=== PATIENT | female | born 1955 | race Caucasian/White ===

== ENCOUNTER 2016-05-07 17:20 | Emergency (ER) | payer BC ==
[2016-05-07 19:10] VITALS: BP 161/95
--- NOTE | 2016-05-07 19:33 | UC ---
Upper Extremity HPI - HPI Summary HPI Summary: Slowly growing painful red agdaagux on R forearm since this morning. Denies recent injury/trauma or insect bite. Pain with moving fingers, pain with palpating muscles near elbow insertions. - History of Current Complaint Chief Complaint: UCSkin Stated Complaint: RIGHT ARM SKIN CONCERN Time Seen by Provider: 05/07/16 19:17 Hx Obtained From: Patient Hx Last Menstrual Period: 1994 ?: No Onset/Duration: Sudden Onset Severity Initially: Mild Severity Currently: Mild Location Of Pain: Is Discrete @ Character: Aching Aggravating Factor(s): Movement, Flexion, Extension Alleviating Factor(s): Nothing Associated Signs And Symptoms: Positive: Redness. Negative: Fever - Allergies/Home Medications Allergies/Adverse Reactions: Allergies Allergy/AdvReac Type Severity Reaction Status Date / Time Penicillins [PCN] Allergy Severe N/V, Verified 05/07/16 19:12 SWEATING, DIARRHEA, RASH Chocolate Allergy PSORIASIS Verified 05/07/16 19:12 Epinephrine Allergy SEVERE Verified 05/07/16 19:12 UNCONTROLABLE SHAKING Iodinated Contrast Media Allergy KIDNEY Verified 05/07/16 19:12 [CONTRAST DYE] PROBLEMS Meperidine [From Demerol HCl] Allergy ANAPHYLACTI Verified 05/07/16 19:12 C Phenytoin [From Dilantin] Allergy UNCONTROLLABLE Verified 05/07/16 19:12 SHAKING Red Dye Allergy PROBLEMS Verified 05/07/16 19:12 WITH KIDNEYS, SKIN PROBLEMS Soy Allergy Allergy SINUS, Verified 05/07/16 19:12 RUNNY EYES Sulfa Antibiotics Allergy See Comment Verified 05/07/16 19:12 Valproic Acid [From Depakote] Allergy ELLUSIONS Verified 05/07/16 19:12 Codeine AdvReac HYPER Verified 05/07/16 19:12 GLUTEN Allergy PSORIASIS, Uncoded 05/07/16 19:12 DIARRHEA MILK Allergy PSORIASIS Uncoded 05/07/16 19:12 PMH/Surg Hx/FS Hx/Imm Hx Endocrine History Of: Denies: Diabetes, Thyroid Disease Cardiovascular History Of: Reports: Hypertension Denies: Cardiac Disorders Respiratory History Of: Denies: COPD, Asthma GI/ History Of: Denies: Ulcer Neurological History Of: Reports: Seizures - 2004- WITH [place] VIRUS- ALSO HAD ENCHEPHALITIS - Surgical History Surgical History: Yes Surgery Procedure, Year, and Place: APPENDECTOMY- AGE 4. HYSTERECTOMY-10/1994- [place]. GANGLION cyst X 2. COLONOSCOPY - Family History Known Family History: Positive: None Family History: no known cardio-vascular issues in family lineage - Social History Alcohol Use: Daily Alcohol Amount: 4 OZ WINE/DAY Substance Use Type: None Smoking Status (MU): Former Smoker When Did the Patient Quit Smoking/Using Tobacco: 1986 - Immunization History Most Recent Influenza Vaccination: never Review of Systems Constitutional: Negative Skin: Rash Eyes: Negative ENT: Negative Respiratory: Negative Cardiovascular: Negative Gastrointestinal: Negative Genitourinary: Negative Motor: Negative Neurovascular: Negative Musculoskeletal: Negative Neurological: Negative Psychological: Negative All Other Systems Reviewed And Are Negative: Yes Physical Exam Triage Information Reviewed: Yes Appearance: Well-Appearing, Obese Vital Signs: Initial Vital Signs Temp 97.7 F 05/07/16 19:03 Pulse 78 05/07/16 19:03 Resp 16 05/07/16 19:03 BP 161/95 05/07/16 19:03 Pulse Ox 99 05/07/16 19:03 Vital Signs Reviewed: Yes Eye Exam: Normal Eyes: Positive: Conjunctiva Clear ENT Exam: Normal ENT: Positive: Normal ENT inspection, Hearing grossly normal, Pharynx normal, TMs normal Dental Exam: Normal Neck exam: Normal Respiratory Exam: Normal Respiratory: Positive: Chest non-tender, Lungs clear, Normal breath sounds, No respiratory distress, No accessory muscle use Cardiovascular Exam: Normal Cardiovascular: Positive: RRR, No Murmur Musculoskeletal Exam: Other - tender along R forearm muscles Musculoskeletal: Positive: Strength Intact, ROM Intact Neurological Exam: Normal Psychological Exam: Normal Skin Exam: Other - 8cm round area of erythema R forearm Upper Extremity Course/Dx - Differential Dx/Diagnosis Provider Diagnoses: R forearm cellulitis Discharge - Discharge Plan Condition: Stable Disposition: HOME Prescriptions: DOXYcycline CAP(*) [DOXYcycline 100MG CAP(*)] 100 mg PO BID #14 cap Patient Education Materials: Cellulitis (ED) Referrals: Non Staff,Doctor [Primary Care Provider] - Additional Instructions: Elevate the area as much as possible. Warm soaks can help the infection resolve more quickly.
== END 2016-05-07 19:39 | disposition home or self-care (01) ==
LOC: UCCORT 17:20
DX: L03.113 Cellulitis of right upper limb (principal); Z88.5 Allergy status to narcotic agent; Z88.0 Allergy status to penicillin; Z88.2 Allergy status to sulfonamides; Z91.041 Radiographic dye allergy status; Z87.891 Personal history of nicotine dependence; E66.9 Obesity, unspecified
CPT/HCPCS: 99212; G0463

== ENCOUNTER 2016-08-26 09:58 | Emergency (ER) | payer BC ==
[2016-08-26 10:49] VITALS: BP 146/78
--- NOTE | 2016-08-26 12:09 | UC ---
Dental HPI - HPI Summary HPI Summary: pt presents with c/o left lower jaw and ear pain, and left ear discharge. Pt reports that she has been swimming recently. - History of Current Complaint Chief Complaint: UCDentalProblem Stated Complaint: DENTAL PAIN Time Seen by Provider: 08/26/16 11:56 Hx Obtained From: Patient Hx Last Menstrual Period: 1994 ?: No Onset/Duration: Gradual Onset, Lasting Days Severity: Moderate Related History: Discharge - from left ear, Swelling - Allergies/Home Medications Allergies/Adverse Reactions: Allergies Allergy/AdvReac Type Severity Reaction Status Date / Time Penicillins [PCN] Allergy Severe N/V, Verified 08/26/16 10:43 SWEATING, DIARRHEA, RASH Chocolate Allergy PSORIASIS Verified 08/26/16 10:43 Epinephrine Allergy SEVERE Verified 08/26/16 10:43 UNCONTROLABLE SHAKING Iodinated Contrast Media Allergy KIDNEY Verified 08/26/16 10:43 [CONTRAST DYE] PROBLEMS Meperidine [From Demerol HCl] Allergy ANAPHYLACTI Verified 08/26/16 10:43 C Phenytoin [From Dilantin] Allergy UNCONTROLLABLE Verified 08/26/16 10:43 SHAKING Red Dye Allergy PROBLEMS Verified 08/26/16 10:43 WITH KIDNEYS, SKIN PROBLEMS Soy Allergy Allergy SINUS, Verified 08/26/16 10:43 RUNNY EYES Sulfa Antibiotics Allergy See Comment Verified 08/26/16 10:43 Valproic Acid [From Depakote] Allergy ELLUSIONS Verified 08/26/16 10:43 Codeine AdvReac HYPER Verified 08/26/16 10:43 GLUTEN Allergy PSORIASIS, Uncoded 08/26/16 10:43 DIARRHEA MILK Allergy PSORIASIS Uncoded 08/26/16 10:43 PMH/Surg Hx/FS Hx/Imm Hx Previously Healthy: Yes - Surgical History Surgical History: Yes Surgery Procedure, Year, and Place: APPENDECTOMY- AGE 4. HYSTERECTOMY-10/1994- [place]. GANGLION cyst X 2. COLONOSCOPY - Family History Known Family History: Positive: Cardiac Disease Family History: no known cardio-vascular issues in family lineage - Social History Alcohol Use: None Alcohol Amount: 4 OZ WINE/DAY Substance Use Type: None Smoking Status (MU): Former Smoker When Did the Patient Quit Smoking/Using Tobacco: 1986 - Immunization History Most Recent Influenza Vaccination: NEVER Most Recent Tetanus Shot: UTD Most Recent Pneumonia Vaccination: NEVER Review of Systems Constitutional: Negative Skin: Negative Eyes: Negative ENT: Ear Ache, Other - lower left jaw pain and swelling Respiratory: Negative Cardiovascular: Negative Gastrointestinal: Negative Genitourinary: Negative Motor: Negative Neurovascular: Negative Musculoskeletal: Negative Neurological: Negative Psychological: Negative All Other Systems Reviewed And Are Negative: Yes Physical Exam Triage Information Reviewed: Yes Appearance: Well-Appearing Vital Signs: Initial Vital Signs Temp 98.9 F 08/26/16 10:44 Pulse 61 08/26/16 10:44 Resp 18 08/26/16 10:44 BP 146/78 08/26/16 10:44 Pulse Ox 97 08/26/16 10:44 Vital Signs Reviewed: Yes Eye Exam: Normal ENT Exam: Other ENT: Positive: Other: - left ear Dental: Positive: Other: - canker sore, erythema swelling left lower mid jaw. Neck exam: Normal Respiratory Exam: Normal Cardiovascular Exam: Normal Musculoskeletal Exam: Normal Neurological Exam: Normal Psychological Exam: Normal Skin Exam: Normal Dental Complaint Course/Dx - Differential Dx/Diagnosis Differential Diagnosis/Dx: Other - otits externa Provider Diagnoses: serous otitis media. dental abscess Discharge - Discharge Plan Condition: Stable Disposition: HOME Prescriptions: Ciproflox/Dexameth OTIC.SUSP* [Ciprodex Otic*] 2 drop LEFT EAR Q12H #1 bottle Clindamycin Cap(NF) [Cleocin 300 mg Cap(NF)] 300 mg PO TID #15 cap Patient Education Materials: Dental Abscess (ED), Otitis Externa (ED) Referrals: Non Staff,Doctor [Primary Care Provider] -
== END 2016-08-26 12:21 | disposition home or self-care (01) ==
LOC: UCCORT 09:58
DX: H65.92 Unspecified nonsuppurative otitis media, left ear (principal); K04.7 Periapical abscess without sinus; Z88.0 Allergy status to penicillin
CPT/HCPCS: 99212; G0463

== ENCOUNTER 2017-02-11 13:08 | Emergency (ER) | payer BC ==
[2017-02-11 13:19] VITALS: BP 180/92
--- NOTE | 2017-02-24 12:43 | UC ---
Dizzy HPI HPI Summary: patient has had sinus issuses for the past week, started getting very dizzy last night, but it resolved, today dizzyness is worse, not sure if it is related to her sinus issues, she denies any Chest pain or SOB. but states she doesn't feel right. - History Of Current Complaint Chief Complaint: UCGeneralIllness Stated Complaint: SINUS COMPLAINT Time Seen by Provider: 02/11/17 13:17 Hx Obtained From: Patient Hx Last Menstrual Period: 1994 ?: No Onset/Duration: Sudden Onset, Lasting Days Timing: Hours Severity Initially: Mild Severity Currently: Moderate Pain Intensity: 3 Pain Scale Used: 0-10 Numeric Character: Head Spinning, Lightheaded, Dizzy Aggravating Factor(s): Nothing Alleviating Factor(s): Nothing Associated Signs And Symptoms: Positive: Unsteady Gait - Risk Factors Cardiac Risk Factors: Family History CVA Risk Factor: Negative - Allergies/Home Medications Allergies/Adverse Reactions: Allergies Allergy/AdvReac Type Severity Reaction Status Date / Time Penicillins [PCN] Allergy Severe N/V, Verified 02/11/17 13:20 SWEATING, DIARRHEA, RASH Chocolate Allergy PSORIASIS Verified 02/11/17 13:20 Epinephrine Allergy SEVERE Verified 02/11/17 13:20 UNCONTROLABLE SHAKING Iodinated Contrast Media Allergy KIDNEY Verified 02/11/17 13:20 [CONTRAST DYE] PROBLEMS Meperidine [From Demerol HCl] Allergy ANAPHYLACTI Verified 02/11/17 13:20 C Phenytoin [From Dilantin] Allergy UNCONTROLLABLE Verified 02/11/17 13:20 SHAKING Red Dye Allergy PROBLEMS Verified 02/11/17 13:20 WITH KIDNEYS, SKIN PROBLEMS Soy Allergy Allergy SINUS, Verified 02/11/17 13:20 RUNNY EYES Sulfa Antibiotics Allergy See Comment Verified 02/11/17 13:20 Valproic Acid [From Depakote] Allergy ELLUSIONS Verified 02/11/17 13:20 Codeine AdvReac HYPER Verified 02/11/17 13:20 GLUTEN Allergy PSORIASIS, Uncoded 02/11/17 13:20 DIARRHEA MILK Allergy PSORIASIS Uncoded 02/11/17 13:20 PMH/Surg Hx/FS Hx/Imm Hx Previously Healthy: Yes - Surgical History Surgical History: Yes Surgery Procedure, Year, and Place: APPENDECTOMY- AGE 4. HYSTERECTOMY-10/1994- [place]. GANGLION cyst X 2. COLONOSCOPY - Family History Known Family History: Positive: None, Cardiac Disease Family History: no known cardio-vascular issues in family lineage - Social History Alcohol Use: None Alcohol Amount: 4 OZ WINE/DAY Substance Use Type: None Smoking Status (MU): Former Smoker When Did the Patient Quit Smoking/Using Tobacco: 1986 - Immunization History Most Recent Influenza Vaccination: NEVER Most Recent Tetanus Shot: UTD Most Recent Pneumonia Vaccination: NEVER Review of Systems Constitutional: Fatigue Skin: Negative Eyes: Negative ENT: Sore Throat, Nasal Discharge, Sinus Congestion, Sinus Pain/Tenderness Respiratory: Negative Cardiovascular: Negative Gastrointestinal: Negative Genitourinary: Negative Motor: Negative Neurovascular: Negative Musculoskeletal: Negative Neurological: Other - dizzy Psychological: Negative Is Patient Immunocompromised?: No All Other Systems Reviewed And Are Negative: Yes Physical Exam Triage Information Reviewed: Yes Appearance: Well-Appearing, Well-Nourished, Pain Distress Vital Signs: Initial Vital Signs Temp 98.2 F 02/11/17 13:12 Pulse 71 02/11/17 13:12 Resp 16 02/11/17 13:12 BP 180/92 02/11/17 13:12 Pulse Ox 99 02/11/17 13:12 Vital Signs Reviewed: Yes Eye Exam: Normal ENT: Positive: Nasal congestion, TM bulging Dental Exam: Normal Neck exam: Normal Neck: Positive: Supple, Nontender, No Lymphadenopathy Respiratory Exam: Normal Respiratory: Positive: Chest non-tender, Lungs clear, Normal breath sounds Cardiovascular Exam: Normal Cardiovascular: Positive: RRR, No Murmur, Pulses Normal Abdominal Exam: Normal Abdomen Description: Positive: Nontender, No Organomegaly, Soft Bowel Sounds: Positive: Present Musculoskeletal Exam: Normal Neurological: Positive: Alert, Muscle Tone Normal, Other: - PERRLA, +Rhomberg, patient cannot stand up without holding on to something Psychological Exam: Normal Skin Exam: Normal Diagnostics - EKG Cardiac Rhythm: Sinus: Normal - no pror EKG for comparison, reviewed with Dr KATIANA Mendoza Course/Dx - Course Course Of Treatment: hx obtained, exam performed ,meds reviewed, EKG obtained, adivsed to follow up at [facility] er for further MD jose aware at ER. - Differential Dx/Diagnosis Differential Diagnosis/HQI/PQRI: Anxiety, Coronary Artery Disease, CVA, Myocardial Infarction, Transient Ischemic Attack Provider Diagnoses: dizziness Discharge - Discharge Plan Condition: Stable Disposition: HOME Patient Education Materials: Dizziness (ED) Referrals: Non Staff,Doctor [Primary Care Provider] - Additional Instructions: 1. please report to ER for further evaluation of your symtpoms. 2. go straight there, they are aware that you are coming from urgent care.
== END 2017-02-11 13:47 | disposition home or self-care (01) ==
LOC: UCCORT 13:08
DX: R42 Dizziness and giddiness (principal); R53.83 Other fatigue; J02.9 Acute pharyngitis, unspecified; R09.81 Nasal congestion; Z90.710 Acquired absence of both cervix and uterus; Z90.89 Acquired absence of other organs; Z88.5 Allergy status to narcotic agent; Z88.0 Allergy status to penicillin; Z88.2 Allergy status to sulfonamides; Z91.041 Radiographic dye allergy status; Z87.891 Personal history of nicotine dependence
CPT/HCPCS: 93005; 99211; G0463

== ENCOUNTER 2017-11-18 09:54 | Emergency (ER) | payer BC ==
[2017-11-18 11:01] VITALS: BP 151/77
--- NOTE | 2017-11-18 11:21 | UC ---
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 She presents here with increased pain and swelling of both ears. Her hearing is muffled. She has frequent otitis externa. She denies any recent fever or chills although she did have a fever last week with a viral URI. - History of Current Complaint Chief Complaint: UCEar Stated Complaint: BILATERAL EAR COMPLAINT Time Seen by Provider: 11/18/17 10:43 Hx Obtained From: Patient Hx Last Menstrual Period: 1994 Onset/Duration: Gradual Onset, Lasting Days Severity Initially: Mild Severity Currently: Moderate Pain Intensity: 4 Pain Scale Used: 0-10 Numeric Aggravating Factors: Other - TOUCH/CHEWING Ear Image: 1 - CELLULITUS - Allergies/Home Medications Allergies/Adverse Reactions: Allergies Allergy/AdvReac Type Severity Reaction Status Date / Time meperidine [From Demerol] Allergy Severe Anaphylatic Verified 11/18/17 11:22 Shock Sulfa (Sulfonamide Allergy Severe Leg pain Verified 11/18/17 11:12 Antibiotics) Penicillins Allergy Intermediate Rash, Verified 11/18/17 11:19 sweating, N/V, diarrhea phenytoin [From Dilantin] Allergy Intermediate ucontrollable Verified 11/18/17 11:16 shaking epinephrine AdvReac Intermediate severe Verified 11/18/17 11:20 uncontrollable shaking Iodinated Contrast- Oral and AdvReac Intermediate kidney Verified 11/18/17 11:21 IV Dye problems soy AdvReac Intermediate Sinus, Verified 11/18/17 11:22 runny eyes codeine AdvReac hyperactivi Verified 11/18/17 11:07 ty red dye AdvReac problems Verified 11/18/17 11:18 with kidneys, skin problems chocolate Allergy Intermediate psoriasis Uncoded 11/18/17 11:18 GLUTEN Allergy PSORIASIS, Uncoded 02/11/17 13:20 DIARRHEA MILK Allergy PSORIASIS Uncoded 02/11/17 13:20 Home Medications: Home Medications 2nd Bp Med 1 tab PO BID 11/18/17 [History Confirmed 11/18/17] Metoprolol Tartrate 25 mg PO BID 11/18/17 [History Confirmed 11/18/17] PMH/Surg Hx/FS Hx/Imm Hx Previously Healthy: Yes Cardiovascular History: Hypertension - Surgical History Surgical History: Yes Surgery Procedure, Year, and Place: APPENDECTOMY- AGE 4. HYSTERECTOMY-10/1994- [place]. GANGLION cyst X 2. COLONOSCOPY - Family History Known Family History: Positive: Cardiac Disease, Hypertension Family History: no known cardio-vascular issues in family lineage - Social History Alcohol Use: Rare Alcohol Amount: 4 OZ WINE/DAY Substance Use Type: None Smoking Status (MU): Former Smoker When Did the Patient Quit Smoking/Using Tobacco: 1986 - Immunization History Most Recent Influenza Vaccination: NEVER Most Recent Tetanus Shot: UTD ~2013 Most Recent Pneumonia Vaccination: NEVER Review of Systems Constitutional: Negative Skin: Negative Eyes: Negative ENT: Ear Ache Respiratory: Negative Cardiovascular: Negative Gastrointestinal: Negative Genitourinary: Negative Motor: Negative Neurovascular: Negative Musculoskeletal: Negative Neurological: Negative Psychological: Negative All Other Systems Reviewed And Are Negative: Yes Physical Exam Triage Information Reviewed: Yes Appearance: Well-Appearing, No Pain Distress, Well-Nourished Vital Signs: Initial Vital Signs Temp 97.9 F 11/18/17 10:46 Pulse 70 11/18/17 10:46 Resp 20 11/18/17 10:46 BP 151/77 11/18/17 10:46 Pulse Ox 98 11/18/17 10:46 Vital Signs Reviewed: Yes Eyes: Positive: Conjunctiva Clear ENT: Positive: TMs normal, Other - BILAT TRAGAL TENDERNESS/EAC SWELLING BILAT. Negative: Normal ENT inspection, Hearing grossly normal, Nasal congestion, Nasal drainage, Trismus, Muffled voice, Hoarse voice Dental Exam: Normal Neck: Positive: Supple, Nontender, No Lymphadenopathy Respiratory: Positive: Lungs clear, Normal breath sounds, No respiratory distress, No accessory muscle use Cardiovascular: Positive: RRR Musculoskeletal: Positive: ROM Intact, No Edema Neurological: Positive: Alert Psychological: Positive: Normal Response To Family Ear Complaint Course/Dx - Differential Dx/Diagnosis Provider Diagnoses: BILATERAL OTITIS EXTERNA. RIGHT EAR LOBE CELLULITIS Discharge - Sign-Out/Discharge Documenting (check all that apply): Patient Departure All imaging exams completed and their final reports reviewed: No Studies - Discharge Plan Condition: Stable Disposition: HOME Prescriptions: DOXYcycline CAP(*) [DOXYcycline 100MG CAP(*)] 100 mg PO BID #14 cap Neomyc/Polym/HC 1% OTIC SUSP* [Cortisporin Otic Susp 1%*] 4 drop BOTH EARS QID 7 Days #1 btl Patient Education Materials: Otitis Externa (ED) Referrals: Rebecca Braga MD [Primary Care Provider] - Additional Instructions: recheck later this week if not better RECHECK SOONER FOR NEW OR WORSENING SYMPTOMS - Billing Disposition and Condition Condition: STABLE Disposition: Home
== END 2017-11-18 11:32 | disposition home or self-care (01) ==
LOC: UCCORT 09:54
DX: H60.93 Unspecified otitis externa, bilateral (principal); H60.11 Cellulitis of right external ear; Z88.0 Allergy status to penicillin; Z88.1 Allergy status to other antibiotic agents; Z88.6 Allergy status to analgesic agent; Z88.8 Allergy status to other drugs, medicaments and biological substances; Z91.041 Radiographic dye allergy status; Z88.5 Allergy status to narcotic agent; I10 Essential (primary) hypertension; Z87.891 Personal history of nicotine dependence
CPT/HCPCS: 99212; G0463

== ENCOUNTER 2018-01-28 08:11 | Emergency (ER) | payer BC ==
[2018-01-28 08:31] VITALS: BP 182/87
--- NOTE | 2018-01-28 09:41 | UC ---
Skin Complaint HPI - HPI Summary HPI Summary: rash bilateral feet x 4 days small red pointy rash of both feet , started on right foot and then left the rash is painful , no new food, drinks, drugs, no change if sore or detergent no fever but feels achy and feverish - History of Current Complaint Chief Complaint: UCSkin Time Seen by Provider: 01/28/18 08:29 Stated Complaint: RIGHT FOOT CONCERN Hx Obtained From: Patient Hx Last Menstrual Period: 1994 Onset/Duration: Gradual Onset, Lasting Days - 4, Still Present Timing: Constant Onset Severity: Moderate Current Severity: Moderate Pain Intensity: 2 Pain Scale Used: 0-10 Numeric Location: Discrete - bilateral feet Character: Pain, Redness Aggravating Factor(s): Touch Alleviating Factor(s): Nothing Associated Signs & Symptoms: Positive: Weakness, Chills, Rash. Negative: Nausea , Vomiting, Numbness, Thirst, Diaphoresis, Pallor, Shivering, Fever, Cough, Wheezing, Chest Pain - Allergy/Home Medications Allergies/Adverse Reactions: Allergies Allergy/AdvReac Type Severity Reaction Status Date / Time meperidine [From Demerol] Allergy Severe Anaphylatic Verified 01/28/18 08:26 Shock Sulfa (Sulfonamide Allergy Severe Leg pain Verified 01/28/18 08:26 Antibiotics) Penicillins Allergy Intermediate Rash, Verified 01/28/18 08:26 sweating, N/V, diarrhea phenytoin [From Dilantin] Allergy Intermediate ucontrollable Verified 01/28/18 08:26 shaking epinephrine AdvReac Intermediate severe Verified 01/28/18 08:26 uncontrollable shaking Iodinated Contrast- Oral and AdvReac Intermediate kidney Verified 01/28/18 08:26 IV Dye problems soy AdvReac Intermediate Sinus, Verified 01/28/18 08:26 runny eyes codeine AdvReac hyperactivi Verified 01/28/18 08:26 ty red dye AdvReac problems Verified 01/28/18 08:26 with kidneys, skin problems chocolate Allergy Intermediate psoriasis Uncoded 01/28/18 08:26 GLUTEN Allergy PSORIASIS, Uncoded 01/28/18 08:26 DIARRHEA MILK Allergy PSORIASIS Uncoded 01/28/18 08:26 Home Medications: Home Medications Losartan TAB* [Cozaar TAB*] 25 mg PO BID 01/28/18 [History Confirmed 01/28/18] PMH/Surg Hx/FS Hx/Imm Hx - Additional Past Medical History 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 HYSTERECTOMY-10/1994- [place]. GANGLION cyst X 2. COLONOSCOPY - Family History Known Family History: Positive: None, Cardiac Disease, Hypertension Family History: no known cardio-vascular issues in family lineage - Social History Alcohol Use: None Alcohol Amount: 4 OZ WINE/DAY Substance Use Type: None Smoking Status (MU): Former Smoker When Did the Patient Quit Smoking/Using Tobacco: 1986 - Immunization History Most Recent Influenza Vaccination: NEVER Most Recent Tetanus Shot: UTD ~2013 Most Recent Pneumonia Vaccination: NEVER Review of Systems All Other Systems Reviewed And Are Negative: Yes Constitutional: Positive: Chills, Fatigue Skin: Positive: Rash Eyes: Positive: Negative ENT: Positive: Negative Respiratory: Positive: Negative Cardiovascular: Positive: Negative Musculoskeletal: Positive: Negative Is Patient Immunocompromised?: No Physical Exam Triage Information Reviewed: Yes Appearance: Well-Appearing, Obese Vital Signs: Initial Vital Signs Temp 98.6 F 01/28/18 08:28 Pulse 74 01/28/18 08:28 Resp 17 01/28/18 08:28 BP 182/87 01/28/18 08:28 Pulse Ox 99 01/28/18 08:28 Vital Signs Reviewed: Yes Eye Exam: Normal Eyes: Positive: Conjunctiva Clear ENT: Positive: Normal ENT inspection, Hearing grossly normal, Pharynx normal Neck exam: Normal Neck: Positive: Supple, Nontender, No Lymphadenopathy Respiratory: Positive: Chest non-tender, Lungs clear, Normal breath sounds Cardiovascular: Positive: RRR, No Murmur, Pulses Normal Abdominal Exam: Normal Abdomen Description: Positive: Nontender, Soft. Negative: CVA Tenderness (R), CVA Tenderness (L) Bowel Sounds: Positive: Present Musculoskeletal Exam: Normal Musculoskeletal: Positive: Strength Intact, ROM Intact, No Edema Neurological Exam: Normal Neurological: Positive: Alert Skin: Positive: Rashes - petichea rash bilateral feet , tender to touch Course/Dx - Diagnoses Provider Diagnosis: Petechial rash, Vasculitis Discharge - Sign-Out/Discharge Documenting (check all that apply): Patient Departure All imaging exams completed and their final reports reviewed: No Studies - Discharge Plan Condition: Stable Disposition: HOME Prescriptions: predniSONE [Prednisone 20 MG TAB] 20 mg PO BID #10 tablet Patient Education Materials: Purpura (ED) Referrals: Rebecca Braga MD [Primary Care Provider] - 3 Days Additional Instructions: vasculitis will check cbc, cmp , ESR please call the office in 1 day for test results will start prednisone please follow up with your pcp in 3 days - Billing Disposition and Condition Condition: STABLE Disposition: Home
[2018-01-28 13:40] LABS: ABS Basophils 0 10^3/ul (0-0.2); ABS Eosinophils 0.3 10^3/ul (0-0.6); ABS Lymphocytes 3.2 10^3/ul (1.0-4.8); ABS Monocytes 0.7 10^3/ul (0-0.8); ABS Neutrophils 5.5 10^3/ul (1.5-7.7); ABS Nucleated RBC 0 10^3/ul; Eosinophil % 3.2 %; Hematocrit 38 % (35-47); Hemoglobin 13.1 g/dl (12.0-16.0); Lymphocyte % 32.6 %; Mean Corpuscular HGB Conc 35 g/dl (31-36); Mean Corpuscular Hemoglobin 31 pg (27-31); Mean Corpuscular Volume 89 fL (80-97); Mean Platelet Volume 7.8 fL (7.4-10.4); Nucleated Red Blood Cells % 0.1; Platelet Count 367 10^3/ul (150-450); Red Cell Distribution Width 13 % (10.5-15); White Blood Count 9.7 10^3/ul (3.5-10.8)
[2018-01-28 13:57] LABS: EGFR Non-African American 58.2 (>60)
--- NOTE | 2018-01-29 07:42 | UC ---
- Progress Note Progress Note: Lab work lab work from January 28, 2018 comes back with an elevated sed rate of 38 and mild elevation of the glucose at 106 to BE ON a 26 creatinine 0.97. Patient was started on prednisone for vasculitis. Nursing to call patient and discussed lab results and ensure that the patient has follow-up with her primary care doctor. Course/Dx - Diagnoses Provider Diagnoses: Petechial rash, Vasculitis Discharge - Sign-Out/Discharge Documenting (check all that apply): Patient Departure All imaging exams completed and their final reports reviewed: No Studies - Discharge Plan Condition: Stable Disposition: HOME Prescriptions: predniSONE [Prednisone 20 MG TAB] 20 mg PO BID #10 tablet Patient Education Materials: Purpura (ED) Referrals: Rebecca Braga MD [Primary Care Provider] - 3 Days Additional Instructions: vasculitis will check cbc, cmp , ESR please call the office in 1 day for test results will start prednisone please follow up with your pcp in 3 days - Billing Disposition and Condition Condition: STABLE Disposition: Home
== END 2018-01-28 09:23 | disposition home or self-care (01) ==
LOC: UCCORT 08:11
DX: R23.3 Spontaneous ecchymoses (principal); I77.6 Arteritis, unspecified; Z88.2 Allergy status to sulfonamides; Z88.0 Allergy status to penicillin; Z88.5 Allergy status to narcotic agent; Z88.6 Allergy status to analgesic agent; Z91.041 Radiographic dye allergy status; Z87.891 Personal history of nicotine dependence
CPT/HCPCS: 36415; 80053; 85025; 85652; 99212; G0463

== ENCOUNTER 2018-02-01 16:53 | Emergency (ER) | payer BC ==
--- OUTSIDE RECORDS SUMMARY | 2018-02-01 17:36 | XMS REPORT ---
:1955 External Reference #:[id number] Author Organization [facility] 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 Rebecca Braga MD Primary Care Physician Unavailable Payers Type Date Identification Numbers Payment Provider Subscriber Commercial Policy Number: [id number] [facility] [place] Banegas PayID: [id number] [address] [place] [address] Medigap Part B Expires: 2017 Policy Number: Excellus Jolanta Banegas [id number] PayID: [id number] [address] [address] [place] [address] Problems Date Description Provider Status Onset: 10/08/2017 Obesity Rebecca Braga MD Active Onset: 10/08/2017 Psoriasis Rebecca Braga MD Active Onset: 10/08/2017 Essential hypertension Rebecca Braga MD Active Family History Date Family Member(s) Problem(s) Comments Father Unknown Mother due to COPD () Mother due to Heart Disease () Social History Type Date Description Comments Marital Status 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 ETOH Use Denies alcohol use Smoking Patient is a former smoker 30-40 years ago Recreational Drug Use Denies Drug Use Daily Caffeine Does Not Consume Caffeine Allergies, Adverse Reactions, Alerts Date Description Reaction Status Severity Comments 10/08/2017 Penicillin active anaphylaxis 10/08/2017 Benadryl active off balance 10/08/2017 Valproic Acid active anaphylaxis 10/08/2017 Dilantin active anaphylaxis 10/08/2017 FD&C Red 40 Varma active kidney failure 10/08/2017 Dairy active 10/08/2017 Soy Germ active Medications Medication Date Status Form Strength Qnty SIG Indications Ordering Provider Hydrochlorothiazi 01/31 Active Tablets 12.5mg 30tab 1 tab by I10 Gagen, de s mouth Amy every e, MS, morning NOVELTY WORKER-C, CNM Omron 7 Series 11/15 Active Device 1unit use daily I10 Gagen, Blood Pressure s as Amy Monitor directed e, MS, to monitor NOVELTY WORKER-C, bp/ dx:htn CNM Losartan 10/30 Active Tablets 50mg 180ta 1 by mouth I10 Gagen, Potassium bs twice a Amy day e, MS, NOVELTY WORKER-C, CNM Metoprolol Active Tablets 25mg 60tab 2 by mouth Gagen, Tartrate / s every day Amy e, MS, NOVELTY WORKER-C, CNM Fluticasone 11/15 Hx Suspension 50mcg/Act 32gm 2 sprays J30.9 Gagen, Propionate intranasal Amy - every day e, MS, 01/27 NOVELTY WORKER-C, CNM Loratadine 11/15 Hx Capsules 10mg 30cap take one J30.9 Gagen, s capsule at Amy - night for e, MS, 01/27 allergies NOVELTY WORKER-C CNM Nitrofurantoin 11/01 Hx Capsules 100mg 14cap Take one Gagen, Monohyd Macro s capsule Amy - twice a e, MS, 11/29 day NOVELTY WORKER-C, CNM Losartan 10/08 Hx Tablets 50mg 30tab 1 tab by I10 Maria Luz, Potassium s mouth MD Rebecca - every day 10/30 Clobetasol 10/08 Hx Liquid 0.05% 59ml use twice L40.0 Maria Luz, Propionate daily for MD Rebecca - up to two 12/ weeks external ear canal prn Otezla Hx Tablets 30mg TK 1 T PO Unknown /0000 bid - 01/27 Neomycin/Polymyxi Hx Suspension [id number] Shake LQ Unknown n/Hydrocortisone /0000 -1 And Int 4 (Otic) - GTS In AU 01/27 qid prn Vital Signs Date Vital Result Comment 2018 BP Systolic Sitting Right Arm 176 mmHg Jn 150/85 BP Diastolic Sitting Right Arm 89 mmHg Jn 150/85 Body Temperature 98.3 F Heart Rate 72 /min Height 64.5 inches 5'4.50" Weight 205.00 lb BMI (Body Mass Index) 34.6 kg/m2 BSA (Body Surface Area) 1.99 m2 Dillon body weight in kilograms 56 O2 % BldC Oximetry 97 % 01/27/2018 BP Systolic Sitting Right Arm 171 mmHg jn 142/86 BP Diastolic Sitting Right Arm 91 mmHg jn 142/86 Body Temperature 98.0 F Heart Rate 79 /min Respiratory Rate 16 /min Height 64.5 inches 5'4.50" Weight 206.00 lb BMI (Body Mass Index) 34.8 kg/m2 BSA (Body Surface Area) 1.99 m2 Dillon body weight in kilograms 56 O2 % BldC Oximetry 98 % 11/29/2017 BP Systolic Sitting Left Arm 147 mmHg BP Diastolic Sitting Left Arm 85 mmHg Body Temperature 98.3 F Heart Rate 81 /min Height 64.5 inches 5'4.50" Weight 202.00 lb BMI (Body Mass Index) 34.1 kg/m2 BSA (Body Surface Area) 1.98 m2 Dillon body weight in kilograms 56 O2 % BldC Oximetry 96 % 11/15/2017 BP Systolic 143 mmHg BP Diastolic 84 mmHg Body Temperature 96.1 F Heart Rate 75 /min Respiratory Rate 18 /min Weight 199.25 lb O2 % BldC Oximetry 98 % 10/30/2017 BP Systolic 153 mmHg BP Diastolic 81 mmHg Body Temperature 97.5 F Heart Rate 59 /min Respiratory Rate 20 /min Weight 196.12 lb O2 % BldC Oximetry 96 % Ra Pain Level 0 10/08/2017 BP Systolic Sitting Left Arm 171 mmHg recheck 164/85 BP Diastolic Sitting Left Arm 87 mmHg recheck 164/85 Body Temperature 98.5 F Heart Rate 65 /min Respiratory Rate 12 /min Height 64.5 inches 5'4.50" Weight 198.00 lb BMI (Body Mass Index) 33.5 kg/m2 BSA (Body Surface Area) 1.96 m2 Dillon body weight in kilograms 56 O2 % BldC Oximetry 98 % Results Test Date Test Result H/L Range Note Laboratory test finding 2018 Urine Protein,Random <pending> Comp Metabolic Panel 01/28/2018 Sodium 140 mmol/L 135-145 1 Potassium 3.9 mmol/L 3.5-5.0 1 Chloride 107 mmol/L 101-111 1 Co2 Carbon Dioxide 25 mmol/L 22-32 1 Anion Gap 8 mmol/L 2-11 1 Calcium 9.5 mg/dL 8.6-10.3 1 Albumin 4.3 g/dL 3.2-5.2 1 Total Bilirubin 0.60 mg/dL 0.2-1.0 1 Glucose 106 mg/dL High 70-100 1 Blood Urea Nitrogen 26 mg/dL High 6-24 1 Creatinine 0.97 mg/dL High 0.51-0.95 1 BUN/Creatinine Ratio 26.8 High 8-20 1 Total Protein 7.6 g/dL 6.4-8.9 1 Globulin 3.3 g/dL 2-4 1 Albumin/Globulin Ratio 1.3 1-3 1 Alkaline Phosphatase 74 U/L 34-104 1 Alt 25 U/L 7-52 1 Ast 25 U/L 13-39 1 Egfr Non- 58.2 >60 1 Egfr 70.4 >60 1, 2 CBC Auto Diff 01/28/2018 White Blood Count 9.7 10^3/uL 3.5-10.8 1 Red Blood Count 4.30 10^6/uL 4.00-5.40 1 Hemoglobin 13.1 g/dL 12.0-16.0 1 Hematocrit 38 % 35-47 1 Mean Corpuscular Volume 89 fL 80-97 1 Mean Corpuscular Hemoglobin 31 pg 27-31 1 Mean Corpuscular HGB Conc 35 g/dL 31-36 1 Red Cell Distribution Width 13 % 10.5-15 1 Platelet Count 367 10^3/uL 150-450 1 Mean Platelet Volume 7.8 fL 7.4-10.4 1 Abs Neutrophils 5.5 10^3/uL 1.5-7.7 1 Abs Lymphocytes 3.2 10^3/uL 1.0-4.8 1 Abs Monocytes 0.7 10^3/uL 0-0.8 1 Abs Eosinophils 0.3 10^3/uL 0-0.6 1 Abs Basophils 0 10^3/uL 0-0.2 1 Abs Nucleated RBC 0 10^3/uL 1 Granulocyte % 56.6 % 1 Lymphocyte % 32.6 % 1 Monocyte % 7.1 % 1 Eosinophil % 3.2 % 1 Basophil % 0.5 % 1 Nucleated Red Blood Cells % 0.1 1 Laboratory test 01/28/2018 Erythrocyte Sed Rate 38 mm/Hr High 0-30 1, 3 finding Laboratory test 01/14/2018 Vitamin D,25-Hydroxy 58.5 ng/mL 30.0-100.0 4 , 5 finding LDL Cholesterol 01/14/2018 Cholesterol 211 mg/dL High <200 4, 6 Profile Triglycerides 142 mg/dL <150 4, 7 HDL Cholesterol 41 mg/dL >40 4, 8 LDL-Cholesterol 142 mg/dL < 100 4, 9 Glycohemoglobin A1c 01/14/2018 Glycohemoglobin (A1c) 6.2 % 4.2-6.3 4, 10 eAG 131 mg/dL 4 Comprehensive Metabolic Panel 01/14/2018 Glucose 99 mg/dL 74-106 4 BUN 16 mg/dL 7-18 4 Creatinine 1.1 mg/dL 0.6-1.3 4 Glom Filtration Rate, Estimate 53 mL/min >60 4 If >60 mL/min >60 4, 11 BUN/Creat 14.5 ratio 4 Sodium 141 mmol/L 136-145 4 Potassium 4.0 mmol/L 3.5-5.1 4 Chloride 107 mmol/L 98-107 4 Carbon Dioxide 26 mmol/L 21-32 4 Anion Gap 8 mEq/L 8-16 4 Calcium 8.7 mg/dL 8.5-10.1 4 Total Protein 8.2 g/dL 6.4-8.2 4 Albumin 3.6 g/dL 3.4-5.0 4 Globulin 4.6 g/dL High 1.9-4.3 4 Alb/Glob 0.8 ratio 4 Bilirubin,Total 0.5 mg/dL 0.2-1.0 4 Sgot/Ast 27 U/L 15-37 4 SGPT/Alt 37 U/L 12-78 4 Alkaline Phosphatase 88 U/L 45-117 4 Ua RFX Micro & Culture II 11/15/2017 Urine Color YELLOW Yellow 12 Urine Clarity TURBID Clear 12 Urine Glucose - Dipstick NEGATIVE mg/dL Negative 12 Urine Bilirubin - Dipstick NEGATIVE Negative 12 Urine Ketone NEGATIVE mg/dL Negative 12 Urine Specific [place] 1.025 1.010-1.030 12 Urine Blood LARGE Negative 12 Urine PH 6.0 Low 6.5-7.5 12 Urine Protein - Dipstick 30 mg/dL High Negative 12 Urine Urobilinogen - Dipstick 0.2 E.U./dL 0.2-1.0 12 Urine Nitrite - Dipstick NEGATIVE Negative 12 Urine Leuk Esterase MODERATE Negative 12 Urine RBC 0-2 rbc/hpf 0-2 12 Urine WBC 0-2 wbc/hpf 0-7 12 Urine Epithelial Cells VERY FEW /lpf None Seen 12 Urine Bacteria MODERATE None Seen 12 Urine Amorph Sediment LARGE Negative 12 Source: URINE, CLEAN CAT <SEE NOTE> 12, 13 Protein/Creatinine 11/15/2017 Creatinine,Urine 188.1 mg/dL Not Estab. 12 Ratio,Urine Protein,Total,Urine 72.6 mg/dL Not Estab. 12 Protein/Creatinine Ratio 386 MG/GCRE High 0-200 12, 14 Urine Culture 11/15/2017 Urine Culture ESCHERICHIA COLI 12, 15 Quantity 50,000 - 100,000 <SEE NOTE> 12, 16 Urine Culture MIXED URETHRAL F <SEE NOTE> 12, 17 Quantity 10,000 - 50,000 <SEE NOTE> 12, 18 Escherichia Coli 11/15/2017 Nitrofurantoin 32 12 Trimethoprim/Sulfamethoxazole <=20 12 Ampicillin <=2 12 Cefazolin <=4 12 Ampicillin/Sulbactam <=2 12 Ciprofloxacin <=0.25 12 Piperacillin/Tazobactam <=4 12 Ceftazidime <=1 12 Ceftriaxone <=1 12 Cefepime <=1 12 Levofloxacin <=0.12 12 Imipenem <=0.25 12 Gentamicin <=1 12 Tobramycin <=1 12 Urine Dipstick 11/15/2017 Ua Color Yellow Yellow Ua Clarity Clear Clear Ua Leuko Positive (2+) Negative Ua Nitrite Negative Negative Ua Urobilinogen 3.5 High 0.2 - 1.0 E.U./dL Ua Protein Positive (1+) Negative Ua PH 5.5 Low 6.5-7.5 Ua Blood Positive (3+) Negative Ua Specific [place] 1.030 1.010-1.030 Ua Ketones Negative Negative Ua Bilirubin Negative Negative Ua Glucose Negative Negative Urine Dipstick 10/30/2017 Ua Color yellow Yellow Ua Clarity cloudy Clear Ua Leuko - Negative Ua Nitrite - Negative Ua Urobilinogen 0.2 0.2 - 1.0 E.U./dL Ua Protein 2+ High Negative Ua PH 5.0 Low 6.5-7.5 Ua Blood 3 High Negative Ua Specific [place] 1.030 1.010-1.030 Ua Ketones trace Negative Ua Bilirubin - Negative Ua Glucose - Negative HPV High Risk - Alt Ref Lab 10/30/2017 HPV High Risk Results on file 19 Escherichia Coli 10/30/2017 Nitrofurantoin <=16 Trimethoprim/Sulfamethoxazole <=20 Ampicillin 4 Cefazolin <=4 Ampicillin/Sulbactam <=2 Ciprofloxacin <=0.25 Piperacillin/Tazobactam <=4 Ceftazidime <=1 Ceftriaxone <=1 Cefepime <=1 Levofloxacin <=0.12 Imipenem <=0.25 Gentamicin <=1 Tobramycin <=1 Urine Culture 10/30/2017 Urine Culture ESCHERICHIA COLI 20 Quantity > 100,000 CFU/mL 21 Urine Culture URETHRAL GÓMEZ Quantity < 10,000 CFU/mL Comprehensive Metabolic Panel 10/11/2017 Glucose 106 mg/dL 74-106 22 BUN 22 mg/dL High 7-18 22 Creatinine 1.0 mg/dL 0.6-1.3 22 Glom Filtration Rate, Estimate 60 mL/min >60 22 If >60 mL/min >60 22, 23 BUN/Creat 22.0 ratio 22 Sodium 141 mmol/L 136-145 22 Potassium 4.1 mmol/L 3.5-5.1 22 Chloride 107 mmol/L 98-107 22 Carbon Dioxide 28 mmol/L 21-32 22 Anion Gap 6 mEq/L Low 8-16 22 Calcium 8.9 mg/dL 8.5-10.1 22 Total Protein 8.4 g/dL High 6.4-8.2 22 Albumin 3.7 g/dL 3.4-5.0 22 Globulin 4.7 g/dL High 1.9-4.3 22 Alb/Glob 0.8 ratio 22 Bilirubin,Total 0.7 mg/dL 0.2-1.0 22 Sgot/Ast 30 U/L 15-37 22 SGPT/Alt 30 U/L 12-78 22 Alkaline Phosphatase 80 U/L 45-117 22 CBS W/Automated Diff 10/11/2017 White Blood Count 9.1 K/uL 3.1-10.7 22 Red Blood Count 4.63 M/uL 3.90-5.40 22 Hemoglobin 14.2 gm/dL 11.6-15.8 22 Hematocrit 41.9 % 36.0-46.1 22 Mean Cell Volume 90.5 fl 80.9-99.0 22 Mean Corpuscular HGB 30.7 pg 25.9-32.7 22 Mean Corpuscular HGB Conc 33.9 g/dL 30.8-34.3 22 Platelet Count 353 K/uL 155-360 22 Red Cell Distri Width SD 42.2 fl 3-47 22 Red Cell Distri Width %CV 13.1 % 11.7-14.4 22 Mean Platelet Volume 9.7 fL 8.9-12.4 22 Neut% 55.6 % 40.4-72.8 22 Lymph % 34.5 % 20.0-42.0 22 [place] % 6.1 % 4.3-13.2 22 Eo% 3.4 % 0.0-6.6 22 Bas% 0.4 % 0.0-1.1 22 Neut# 5.03 K/uL 1.8-7.0 22 Lymph # 3.12 K/uL 1.0-4.0 22 [place] # 0.55 K/uL 0.3-0.9 22 Eos # 0.31 K/uL 0.0-0.5 22 Baso # 0.04 K/uL 0.0-0.1 22 Laboratory test 10/11/2017 Vitamin D,25-Hydroxy 29.2 ng/mL Low 30.0-100.0 22, 24 finding LDL Cholesterol 10/11/2017 Cholesterol 236 mg/dL High <200 22, 25 Profile Triglycerides 149 mg/dL <150 22, 26 HDL Cholesterol 42 mg/dL >40 22, 27 LDL-Cholesterol 164 mg/dL < 100 22, 28 Glycohemoglobin A1c 10/11/2017 Glycohemoglobin (A1c) 6.1 % 4.2-6.3 22, 29 eAG 128 mg/dL 22 Ua RFX Micro & Culture II 10/08/2017 Urine Color YELLOW Yellow 30 Urine Clarity CLEAR Clear 30 Urine Glucose - Dipstick NEGATIVE mg/dL Negative 30 Urine Bilirubin - Dipstick NEGATIVE Negative 30 Urine Ketone NEGATIVE mg/dL Negative 30 Urine Specific [place] 1.020 1.010-1.030 30 Urine Blood MODERATE Negative 30 Urine PH 6.0 Low 6.5-7.5 30 Urine Protein - Dipstick 100 mg/dL High Negative 30 Urine Urobilinogen - Dipstick 0.2 E.U./dL 0.2-1.0 30 Urine Nitrite - Dipstick NEGATIVE Negative 30 Urine Leuk Esterase SMALL Negative 30 Urine RBC 2-5 rbc/hpf 0-2 30 Urine WBC 5-10 wbc/hpf 0-7 30 Urine Epithelial Cells FEW /lpf None Seen 30 Urine Calcium Oxalate Crystals FEW None Seen 30 Urine Bacteria FEW None Seen 30 Protein/Creatinine 10/08/2017 Creatinine,Urine 128.9 mg/dL Not Estab. 30 Ratio,Urine Protein,Total,Urine 78.4 mg/dL Not Estab. 30 Protein/Creatinine Ratio 608 MG/GCRE High 0-200 30, 31 Urine Culture 10/08/2017 Urine Culture ESCHERICHIA COLI 30, 32 Quantity > 100,000 CFU/mL 30, 33 Urine Culture MIXED URETHRAL F <SEE NOTE> 30, 34 Quantity 10,000 - 50,000 <SEE NOTE> 30, 35 Escherichia Coli 10/08/2017 Nitrofurantoin <=16 30 Trimethoprim/Sulfamethoxazole <=20 30 Ampicillin 4 30 Cefazolin <=4 30 Ampicillin/Sulbactam <=2 30 Ciprofloxacin <=0.25 30 Piperacillin/Tazobactam <=4 30 Ceftazidime <=1 30 Ceftriaxone <=1 30 Cefepime <=1 30 Levofloxacin <=0.12 30 Imipenem <=0.25 30 Gentamicin <=1 30 Tobramycin <=1 30 Urine Dipstick 10/08/2017 Ua Color yellow Yellow Ua Clarity cloudy Clear Ua Leuko 2+ High Negative Ua Nitrite - Negative Ua Urobilinogen trace Low 0.2 - 1.0 E.U./dL Ua Protein 1+ High Negative Ua PH 6 Low 6.5-7.5 Ua Blood 2+ High Negative Ua Specific [place] 1.020 1.010-1.030 Ua Ketones - Negative Ua Bilirubin - Negative Ua Glucose - Negative 1 [id number] 2 Because ethnic data is not always readily available, this report includes an eGFR for both -Americans and non- Americans. The National Kidney Disease Education Program (NKDEP) does not endorse the use of the MDRD equation for patients that are not between the ages of 18 and 70, are , have extremes of body size, muscle mass, or nutritional status, or are non- or non-. According to the National Kidney Foundation, irrespective of diagnosis, the stage of the disease is based on the level of kidney function: Stage Description GFR(mL/min/1.73 m(2)) 1 Kidney damage with normal or decreased GFR 90 2 Kidney damage with mild decrease in GFR 60-89 3 Moderate decrease in GFR 30-59 4 Severe decrease in GFR 15-29 5 Kidney failure <15 (or dialysis) 3 [id number] 4 E78.2 5 Vitamin D deficiency has been defined by the [place] [employer] and an Endocrine Society practice guideline as a level of serum 25-OH vitamin D less than 20 ng/mL (1,2). The Endocrine Society went on to further define vitamin D insufficiency as a level between 21 and 29 ng/mL (2). 1. IOM ([place] [employer]). 2010. Dietary reference intakes for calcium and D. [place]: The National Academies Press. 2. Anatoliy MF, Ivanna EMERSON, Mariluz MACKENZIE, et al. Evaluation, treatment, and prevention of vitamin D deficiency: an Endocrine Society clinical practice guideline. JCEM. 2010; 96(7):1911-30. Performed at: RN - [facility] [address] [id number] Graduate Engineer: Maia Todd MD, Phone: [phone] 6 Reference Guidelines*: Desirable: ........... < 200 mg/dL Borderline High: ..... 200-239 mg/dL High: ................ >=240 mg/dL * The National Cholesterol Education Program (NCEP) 7 Reference Guidelines*: Normal: ............. < 150 mg/dL Borderline High: .... 150-199 mg/dL High: ............... 200-499 mg/dL Very High: .......... > 500 mg/dL * Source: National Cholesterol Education Program (NCEP) 8 Reference Guidelines*: Low HDL: ..... < 40 mg/dL Normal: ..... 40-60 mg/dL Desirable: ... > 60 mg/dL *The National Cholesterol Education Program(NCEP) 9 Reference Guidelines*: Optimal:........... <100 mg/dL Near Optimal....... 100-129 mg/dL Borderline High.... 130-159 mg/dL High............... 160-189 mg/dL Very High.......... >=190 mg/dL * Source: National Cholesterol Education Program (NCEP) 10 Elevated levels of HbA1c suggest the need for more aggressive treatment of glycemia. The [place] Diabetes Association recommends that a primary goal of therapy should be a HbA1c of <7% and that physicians should re-evaluate the treatment regimen in patients with HbA1c values consistently >8%. 11 Note: Persistent reduction for 3 months or more in an eGFR <60 mL/min/1.73 m2 defines CKD. Patients with eGFR values >/=60 mL/min/1.73 m2 may also have CKD if evidence of persistent proteinuria is present. The original MDRD equation for estimated GFR is not valid for patients less than 18 years of age. Additional information may be found at www.kdoqi.org. 12 R82.99,R82.99 13 URINE, CLEAN CATCH 14 INFCE Result Units: mg/g creat Performed at: RN - [facility] [address] [id number] Graduate Engineer: Maia Todd MD, Phone: [phone] 15 ESCHERICHIA COLI 16 50,000 - 100,000 CFU/mL 17 MIXED URETHRAL GÓMEZ 18 10,000 - 50,000 CFU/mL 19 Hard copy of report to be sent by mail Report may be viewed in Clinical Review, or in PCI under Medical Record Forms 20 ESCHERICHIA COLI 21 > 100,000 CFU/mL 22 Z00.00 E66.09 E55.9 23 Note: Persistent reduction for 3 months or more in an eGFR <60 mL/min/1.73 m2 defines CKD. Patients with eGFR values >/=60 mL/min/1.73 m2 may also have CKD if evidence of persistent proteinuria is present. The original MDRD equation for estimated GFR is not valid for patients less than 18 years of age. Additional information may be found at www.kdoqi.org. 24 Vitamin D deficiency has been defined by the [place] [employer] and an Endocrine Society practice guideline as a level of serum 25-OH vitamin D less than 20 ng/mL (1,2). The Endocrine Society went on to further define vitamin D insufficiency as a level between 21 and 29 ng/mL (2). 1. IOM ([place] [employer]). 2010. Dietary reference intakes for calcium and D. [place]: The National Academies Press. 2. Anatoliy MF, Ivanna EMERSON, Mariluz MACKENZIE, et al. Evaluation, treatment, and prevention of vitamin D deficiency: an Endocrine Society clinical practice guideline. JCEM. 2010; 96():1911-30. Performed at: RN - [facility] [address] [id number] Graduate Engineer: Maia Todd MD, Phone: [phone] 25 Reference Guidelines*: Desirable: ........... < 200 mg/dL Borderline High: ..... 200-239 mg/dL High: ................ >=240 mg/dL * The National Cholesterol Education Program (NCEP) 26 Reference Guidelines*: Normal: ............. < 150 mg/dL Borderline High: .... 150-199 mg/dL High: ............... 200-499 mg/dL Very High: .......... > 500 mg/dL * Source: National Cholesterol Education Program (NCEP) 27 Reference Guidelines*: Low HDL: ..... < 40 mg/dL Normal: ..... 40-60 mg/dL Desirable: ... > 60 mg/dL *The National Cholesterol Education Program(NCEP) 28 Reference Guidelines*: Optimal:........... <100 mg/dL Near Optimal....... 100-129 mg/dL Borderline High.... 130-159 mg/dL High............... 160-189 mg/dL Very High.......... >=190 mg/dL * Source: National Cholesterol Education Program (NCEP) 29 Elevated levels of HbA1c suggest the need for more aggressive treatment of glycemia. The [place] Diabetes Association recommends that a primary goal of therapy should be a HbA1c of <7% and that physicians should re-evaluate the treatment regimen in patients with HbA1c values consistently >8%. 30 R82.99 31 INFCE Result Units: mg/g creat Performed at: RN - [facility] [address] [id number] Graduate Engineer: Maia Todd MD, Phone: [phone] 32 ESCHERICHIA COLI 33 > 100,000 CFU/mL 34 MIXED URETHRAL GÓMEZ 35 10,000 - 50,000 CFU/mL Procedures Date CPT Code Description Status Comment 10/30/2017 Bone Mineral Density Test Completed order at next visit Patient declinesDocument: 10/07/17 - History-Internal Med Document: 10/07/17 - History-Internal Med 02/18/2017 Colonoscopy Completed 05/29/2012 14676 ECHO Transthoracic Inc Completed Performance Continuous Electrocardio 06/25/2008 20802 Stress Test Interpre And Report Completed Only 06/25/2008 81788 Stress Test Physician Super Completed Only 06/10/2008 12124 Stress Test Interpre And Report Completed Only 06/10/2008 27940 Stress Test Physician Super Completed Only 05/01/2007 00023 Doppler ECHO Color Flow Mapping Completed 05/01/2007 82402 Doppler Echocardiogram Complete Completed 05/01/2007 44340 Echocariogram 2D Complete Completed 05/01/2007 41962 Stress Test Interpre And Report Completed Only 05/01/2007 58800 Stress Test Physician Super Completed Only Encounters Type Date Location Provider CPT E/M Dx Office Visit 11/29/2017 Primary Care Office Gloria Collier, [address] Z87.440 3:30p , DHEERAJ, CHOIMA I10 E66.9 L40.0 Office Visit 11/15/2017 8:30a Primary Care Office Gloria Collier, , [address]277 R82.99 CHIOMA ESQUEDA J30.9 I10 H65.193 E55.9 L40.0 Z71.3 Office Visit 10/30/2017 11:00a Primary Care Gloria Collier , 157[address] Z01.419 Office CHIOMA ESQUEDA I10 R82.99 E55.9 E78.2 E66.9 N94.10 Z71.3 Office Visit 10/08/2017 8:40a [place] [address] Z00.00 E66.09 L40.0 I10 R82.99 Plan of Care Future Appointment(s):02/14/2018 9:00 am - Gloria Collier, MS, NOVELTY WORKERChandler, YAMILM at Primary Care Oszdrs3004/29/2018 9:40 am - Rebecca Braga MD at Primary Care Skcoqj1301/31/2018 - Gloria Collier, MS, NOVELTY WORKERFarrukhC, CNML95.9 Vasculitis limited to the skin, unspecifiedComments:--Finish prednisone, monitor symptoms and report any changes-- Patient counseled on possible etiologies, one being related to RA. We will get a rheumatology consult. I will defer to them to order further testing.Referral:Vadim Wick MD, [id number] Essential (primary) hypertensionNew Medication:Hydrochlorothiazide 12.5 mgNew Labs:Comprehensive Metabolic PanelComments:--Limit salt intake. The [place] heart Association recommends 1,500 mg a day as an upper limit for all adults. --Drinking too much alcohol can increase blood pressure. Guidelines recommend no more than 1 alcoholic beverage a day for women.--Increase physical activity to 30 minutes on most days, as tolerated.--Lose weight.--Take blood pressure medication, as directed. --Reduce stress. Some things that may help are to avoid triggers, practice gratitude, make time to relax and do activities you enjoy, meditation - - We will add HCTZ 12.5 mg po QdayAllFollow up:RTO 2 weeks for F/U labs Referral to rheumatology
[2018-02-01] MEDS ORDERED: Lidocaine 1%* 5 ML VIAL INJ ONE (17:57)
--- NOTE | 2018-02-01 18:03 | UC ---
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 Up-to-date tetanus. - History Of Current Complaint Chief Complaint: UCLaceration Stated Complaint: LT HAND LAC Time Seen by Provider: 02/01/18 17:51 Hx Obtained From: Patient Hx Last Menstrual Period: 1994 Laceration Location: Hand - LEFT PALM Mechanism Of Injury: Sharp Trauma Onset/Duration: Sudden Onset, Lasting Minutes, Still Present Severity: Moderate Pain Intensity: 3 Pain Scale Used: 0-10 Numeric Aggravating Factors: Movement Related History: Dominant Hand Right - Allergies/Home Medications Allergies/Adverse Reactions: Allergies Allergy/AdvReac Type Severity Reaction Status Date / Time meperidine [From Demerol] Allergy Severe Anaphylatic Verified 02/01/18 17:39 Shock Sulfa (Sulfonamide Allergy Severe Leg pain Verified 02/01/18 17:39 Antibiotics) Penicillins Allergy Intermediate Rash, Verified 02/01/18 17:39 sweating, N/V, diarrhea phenytoin [From Dilantin] Allergy Intermediate ucontrollable Verified 02/01/18 17:39 shaking epinephrine AdvReac Intermediate severe Verified 02/01/18 17:39 uncontrollable shaking Iodinated Contrast- Oral and AdvReac Intermediate kidney Verified 02/01/18 17:39 IV Dye problems soy AdvReac Intermediate Sinus, Verified 02/01/18 17:39 runny eyes codeine AdvReac hyperactivi Verified 02/01/18 17:39 ty red dye AdvReac problems Verified 02/01/18 17:39 with kidneys, skin problems chocolate Allergy Intermediate psoriasis Uncoded 02/01/18 17:39 GLUTEN Allergy PSORIASIS, Uncoded 02/01/18 17:39 DIARRHEA MILK Allergy PSORIASIS Uncoded 02/01/18 17:39 PMH/Surg Hx/FS Hx/Imm Hx Cardiovascular History: Hypertension - Surgical History Surgical History: Yes Surgery Procedure, Year, and Place: APPENDECTOMY- AGE 4. HYSTERECTOMY-10/1994- [facility]. GANGLION cyst X 2. COLONOSCOPY - Family History Known Family History: Positive: Cardiac Disease, Hypertension Family History: no known cardio-vascular issues in family lineage - Social History Alcohol Use: None Alcohol Amount: 4 OZ WINE/DAY Substance Use Type: None Smoking Status (MU): Former Smoker When Did the Patient Quit Smoking/Using Tobacco: 1986 - Immunization History Most Recent Influenza Vaccination: NEVER Most Recent Tetanus Shot: UTD ~2014 Most Recent Pneumonia Vaccination: NEVER Review of Systems All Other Systems Reviewed And Are Negative: Yes Constitutional: Positive: Negative Skin: Positive: Other - LACERATION LEFT PALM Respiratory: Positive: Negative Cardiovascular: Positive: Negative Gastrointestinal: Positive: Negative Musculoskeletal: Negative: Decreased ROM Physical Exam Triage Information Reviewed: Yes Appearance: Well-Appearing, No Pain Distress, Well-Nourished Vital Signs: Initial Vital Signs Temp 97.7 F 02/01/18 17:36 Pulse 79 02/01/18 17:36 Resp 16 02/01/18 17:36 BP 185/87 02/01/18 17:36 Pulse Ox 98 02/01/18 17:36 Vital Signs Reviewed: Yes Eyes: Positive: Conjunctiva Clear ENT: Positive: Hearing grossly normal Neck: Positive: Supple Respiratory: Positive: No respiratory distress, No accessory muscle use Cardiovascular: Positive: Pulses Normal Abdomen Description: Positive: Soft Musculoskeletal: Positive: ROM Intact, No Edema Neurological: Positive: Alert Psychological: Positive: Age Appropriate Behavior Skin: Positive: Other - 3CM LINEAR LACERATION LEFT PALM Laceration Repair - Laceration Repair 1 Description: Linear Laceration Size After Repair: Length (cm) - 3CM, Width (mm) - 0MM, Depth (mm) - 4MM Modified For Repair: No Type Injection: Local Anesthesia Used: 1.0% Lido Irrigation With Pressure Irrigation Device: Yes Closure Material: Sutures - 7 SIMPLE INTERRUPTED Closure Method: Single Layer Suture Of: Skin Suture Type: Prolene - 5-0 Laceration Course/Dx - Diagnosis Provider Diagnosis: Laceration of left palm Discharge - Sign-Out/Discharge Documenting (check all that apply): Patient Departure All imaging exams completed and their final reports reviewed: No Studies - Discharge Plan Condition: Stable Disposition: HOME Patient Education Materials: Laceration (ED) Referrals: Rebecca Braga MD [Primary Care Provider] - If Needed Additional Instructions: KEEP DRESSINGS IN PLACE AND DRY FOR THE FIRST 24 HRS. THEN YOU MAY REMOVE THE DRESSING AND GENTLY CLEANSE WITH SOAP AND WATER. PAT DRY AND RE-BANDAGE. APPLY THIN LAYER ANTIBIOTIC OINTMENT UNDER BANDAGE FOR FIRST 3-4 DAYS ONLY. CHANGE BANDAGE DAILY AND NEEDED IF IT BECOMES SOILED OR WET. SEEK FOLLOW-UP IF YOU DEVELOP SPREADING REDNESS OF THE SKIN, PURULENT DRAINAGE, FEVER, INCREASED PAIN OR ANY OTHER CONCERNING SYMPTOMS. RETURN TO HAVE YOUR 7 SUTURES REMOVED IN 10 DAYS YOUR BLOOD PRESSURE WAS ELEVATED TODAY (166/86). THIS MAY BE DUE TO YOUR ACUTE CONDITION. MONITOR AND FOLLOW-UP WITH YOUR PCP WITHIN 4 WEEKS IF IT HAS NOT RETURNED TO NORMAL. - Billing Disposition and Condition Condition: STABLE Disposition: Home
[2018-02-01 18:12] VITALS: BP 166/86
== END 2018-02-01 19:00 | disposition home or self-care (01) ==
LOC: UCCORT 16:53
DX: S61.412A Laceration without foreign body of left hand, initial encounter (principal); W45.8XXA Other foreign body or object entering through skin, initial encounter; Y92.9 Unspecified place or not applicable; I10 Essential (primary) hypertension; Z88.0 Allergy status to penicillin; Z88.2 Allergy status to sulfonamides; Z88.5 Allergy status to narcotic agent; Z88.8 Allergy status to other drugs, medicaments and biological substances; Z91.041 Radiographic dye allergy status; Z87.891 Personal history of nicotine dependence
CPT/HCPCS: 12002; 99211; G0463

== ENCOUNTER 2018-02-19 07:00 | Emergency (ER) | payer BC ==
[2018-02-19 07:24] VITALS: BP 120/70
--- NOTE | 2018-02-19 07:36 | UC ---
Skin Complaint HPI - HPI Summary HPI Summary: Patient presents to urgent care with ongoing progressive discomfort in her bilateral feet. Right worse than left. Patient states she's had this for approximately 4 weeks. Patient was seen by her primary care provider did not prescribe any treatments. Patient was and seemed to urgent care on 1210. Patient had blood work done including a CBC and a sedimentation rate. Sedimentation rate was mildly elevated at 38. Patient states she does have rheumatoid arthritis self medicates with hydrogen peroxide but no other prescription meds for this. Patient states the prednisone helped a little bit but the symptoms seemed to have gotten worse. Patient reports tremendous pain and swelling of her feet. Patient does not take anything for pain as "bad for her body. "Patient does have animals including dogs, cats, and mules. Patient denies any fevers or chills. No nausea vomiting. No chest pain or shortness of breath. No bleeding from gums, nose. Patient has never had anything like this before. Patient denies lesions elsewhere on body. Patient states it very painful to touch. Patient denies any new chemicals including laundry detergent , body soaps, or any travel. Patient's medications reviewed this visit. - History of Current Complaint Chief Complaint: UCSkin Time Seen by Provider: 02/19/18 07:25 Stated Complaint: SKIN COMPLAINT Hx Obtained From: Patient, Medical Records Hx Last Menstrual Period: 1994 ?: No Onset/Duration: Gradual Onset, Lasting Weeks Skin Exposure Onset/Duration: Weeks Ago Onset Severity: Moderate Current Severity: Moderate Pain Intensity: 7 Pain Scale Used: 0-10 Numeric Location: Foot (Right), Foot (Left) - Allergy/Home Medications Allergies/Adverse Reactions: Allergies Allergy/AdvReac Type Severity Reaction Status Date / Time meperidine [From Demerol] Allergy Severe Anaphylatic Verified 02/19/18 07:19 Shock Sulfa (Sulfonamide Allergy Severe Leg pain Verified 02/19/18 07:19 Antibiotics) Penicillins Allergy Intermediate Rash, Verified 02/19/18 07:19 sweating, N/V, diarrhea phenytoin [From Dilantin] Allergy Intermediate ucontrollable Verified 02/19/18 07:19 shaking epinephrine AdvReac Intermediate severe Verified 02/19/18 07:19 uncontrollable shaking Iodinated Contrast- Oral and AdvReac Intermediate kidney Verified 02/19/18 07:19 IV Dye problems soy AdvReac Intermediate Sinus, Verified 02/19/18 07:19 runny eyes codeine AdvReac hyperactivi Verified 02/19/18 07:19 ty red dye AdvReac problems Verified 02/19/18 07:19 with kidneys, skin problems chocolate Allergy Intermediate psoriasis Uncoded 02/19/18 07:19 GLUTEN Allergy PSORIASIS, Uncoded 02/19/18 07:19 DIARRHEA MILK Allergy PSORIASIS Uncoded 02/19/18 07:19 PMH/Surg Hx/FS Hx/Imm Hx Previously Healthy: No - rheumatoid arthritis Cardiovascular History: Hypertension - Surgical History Surgical History: Yes Surgery Procedure, Year, and Place: APPENDECTOMY- AGE 4. HYSTERECTOMY-10/1994- [facility]. GANGLION cyst X 2. COLONOSCOPY - Family History Known Family History: Positive: Cardiac Disease, Hypertension, Non-Contributory Family History: no known cardio-vascular issues in family lineage - Social History Alcohol Use: None Alcohol Amount: 4 OZ WINE/DAY Substance Use Type: None Smoking Status (MU): Former Smoker When Did the Patient Quit Smoking/Using Tobacco: 1986 - Immunization History Most Recent Influenza Vaccination: NEVER Most Recent Tetanus Shot: UTD ~2013 Most Recent Pneumonia Vaccination: NEVER Review of Systems All Other Systems Reviewed And Are Negative: Yes Skin: Positive: Rash Cardiovascular: Positive: Other - feet swelling Musculoskeletal: Positive: Other: - feet pain Physical Exam - Summary Physical Exam Summary: Vital Signs Reviewed: Yes A+Ox3, no distress Eyes: Conjunctiva Clear ENT: Hearing grossly normal Neck: Positive: Supple Respiratory: Positive: No respiratory distress, No accessory muscle use Cardiovascular: CBT < 2 sec 2+ DP, PT warmth Musculoskeletal Exam: ambulate with slight limp related to RLE pain + flex/ext knee, ankle, toe Neurological: Positive: Alert, + sensation throughout pt with increased sensitivity and discomfort to b/l feet R>L no pain calves Psychological: Positive: Normal Response Skin: Positive: no ecchymosis, pt with petechia b/l feet R>L on lateral aspect along 5th MT on right pt with large, flat patches of erythema c/w purpura on right foot + TTP no open wounds, oozing No raised, scaly lesion Triage Information Reviewed: Yes Vital Signs: Initial Vital Signs Temp 97.1 F 02/19/18 07:16 Pulse 73 02/19/18 07:16 Resp 16 01/02/19 07:16 BP 120/70 02/19/18 07:16 Pulse Ox 100 02/19/18 07:16 Re-Evaluation - Re-Evaluation First Eval Re-Evaluation Time: 08:06 Comment: spoke with the dermatology office - no appointment available to schedule - will d/w Dr. David - no yet in office. Gave pt cell # - will call pt today. With pt permission - will fax records to office for Dr. David review. pt in agreement with plan Course/Dx - Course Course Of Treatment: Presents with progressive discomfort bilateral feet right worse left. Patient was seen by her PCP as well as at urgent care. Patient was diagnosed with vasculitis and had CBC and sedimentation rate done at urgent care. Patient states she was given a course of prednisone that seemed to improve her symptoms short-term. Patient states symptoms are back and worse. Patient states her feet are retained painful mildly edematous. On exam feet are warm. Patient with scattered petechiae on bilateral feet right more than left. Patient also purpura on her right foot. no open wounds, skin flaking. Patient denies any other systemic complaints. Patient is not taking anything for pain. On exam it appears that the symptoms are related to vasculitis. Will ask dermatology for consultation of patient. This office opened a 8am patient will wait at urgent care pending my phone calls them. It is unclear the underlying cause. Medication patient's on his metoprolol. Patient comfortable in agreement with plan. - Diagnoses Provider Diagnosis: Vasculitis Discharge - Sign-Out/Discharge Documenting (check all that apply): Patient Departure All imaging exams completed and their final reports reviewed: No Studies - Discharge Plan Condition: Stable Disposition: HOME Referrals: Rebecca Braga MD [Primary Care Provider] - Edilia David MD [Medical Doctor] - ([address] [place] [address] ) Additional Instructions: As discussed, the dermolotogy office will call you this morning to schedule an appointment. The office address is: [address] [place] [address] It is recommended you call the office if you do not hear from them by 9am. It is okay to take Tylenol (Acetaminophen) every 6 hours for pain If you have uncontrolled pain, fevers, shortness of breath or other concerns it is recommended you go to the emergency department for further evaluation and treatment. - Billing Disposition and Condition Condition: STABLE Disposition: Home
== END 2018-02-19 08:23 | disposition home or self-care (01) ==
LOC: UCCORT 07:00
DX: I77.6 Arteritis, unspecified (principal); Z88.0 Allergy status to penicillin; Z88.2 Allergy status to sulfonamides; Z88.5 Allergy status to narcotic agent; Z88.8 Allergy status to other drugs, medicaments and biological substances; Z91.041 Radiographic dye allergy status; I10 Essential (primary) hypertension; Z87.891 Personal history of nicotine dependence
CPT/HCPCS: 99211; G0463

== ENCOUNTER 2018-03-06 09:35 | Emergency (ER) | payer BC ==
--- OUTSIDE RECORDS SUMMARY | 2018-03-06 10:17 | XMS REPORT | Continuity of Care Document ---
:1955 External Reference #:[id number] Author Name Rebecca Braga MD Address [address] [place] [address] Care Team Providers Name Role Phone Rebecca Braga MD Care Team Information [employer] Unavailable Rebecca Braga MD Primary Care Physician Unavailable Payers Type Date Identification Numbers Payment Provider Subscriber Policy Number: [id number] [facility] [place] Dodd Maisacc PayID: [id number] [address] [place] [address] Expires: 2017 Policy Number: [id number] [facility] Jolanta Anderson Makenzie PayID: [id number] [address] [address] [place] [address] Advance Directives Description No Information Available Problems Date Description Provider Status Onset: 10/08/2017 Obesity Rebecca Braga MD Active Onset: 10/08/2017 Psoriasis Rebecca Braga MD Active Onset: 10/08/2017 Essential hypertension Rebecca Braga MD Active Family History Date Family Member(s) Problem(s) Comments Father Unknown Mother due to COPD () Mother due to Heart Disease () Social History Type Date Description Comments Sex Unknown Marital Status Occupation [employer] [facility] Work Status Currently Working ETOH Use Denies alcohol use Tobacco Use Start: Unknown End: Patient is a former 30-40 years ago Unknown smoker Recreational Drug Use Denies Drug Use Smoking Status Reviewed: 01/31/18 Patient is a former 30-40 years ago smoker Allergies, Adverse Reactions, Alerts Date Description Reaction Status Severity Comments 10/08/2017 Penicillin Active anaphylaxis 02/01/2018 Penicillins Rash, sweating, N/V, Active Moderate diarrhea 10/08/2017 Benadryl Active off balance 02/01/2018 Gluten Psoriasis, Diarrhea Active 10/08/2017 Valproic Acid Active anaphylaxis 10/08/2017 Dilantin Active anaphylaxis 10/08/2017 FD&C Red 40 Varma Active kidney failure 10/08/2017 Dairy Active 10/08/2017 Soy Germ Active Medications Medication Date Status Form Strength Qnty SIG Indications Ordering Provider Hydrochlorothiazi 01/31 Active Tablets 12.5mg 30tab 1 tab by I10 Gagen, de s mouth Amy every e, MS, morning MEDICAL RECORDS DIRECTOR-C, CNM Omron 7 Series 11/15 Active Device 1unit use daily I10 Gagen, Blood Pressure s as Amy Monitor directed e, MS, to monitor MEDICAL RECORDS DIRECTOR-C, bp/ dx:htn CNM Losartan 10/30 Active Tablets 50mg 180ta 1 by mouth I10 Gagen, Potassium bs twice a Amy day e, MS, MEDICAL RECORDS DIRECTOR-C, CNM Metoprolol Active Tablets 25mg 60tab 2 by mouth Gagen, Tartrate / s every day Amy e, MS, MEDICAL RECORDS DIRECTOR-C, CNM Fluticasone 11/15 Hx Suspension 50mcg/Act 32gm 2 sprays J30.9 Gagen, Propionate intranasal Amy - every day e, MS, 01/27 MEDICAL RECORDS DIRECTOR-C, CNM Loratadine 11/15 Hx Capsules 10mg 30cap take one J30.9 Gagen, s capsule at Amy - night for e, MS, 01/27 allergies MEDICAL RECORDS DIRECTOR-C, CNM Nitrofurantoin 11/01 Hx Capsules 100mg 14cap Take one Gagen, Monohyd Macro s capsule Amy - twice a e, MS, 11/29 day MEDICAL RECORDS DIRECTOR-C, CNM Losartan 10/08 Hx Tablets 50mg 30tab [...] /0000 bid - 01/27 Neomycin/Polymyxi Hx Suspension [id number] Shake LQ Unknown n/Hydrocortisone /0000 -1 And Int 4 (Otic) - GTS In AU 01/27 qid prn Immunizations Description No Information Available Vital Signs Date Vital Result Comment 2018 1:06pm BP Systolic Sitting Right Arm 176 mmHg Jn 150/85 BP Diastolic Sitting Right Arm 89 mmHg Jn 150/85 Body Temperature 98.3 F Heart Rate 72 /min Height 64.5 inches 5'4.50" Weight 205.00 lb BMI (Body Mass Index) 34.6 kg/m2 BSA (Body Surface Area) 1.99 m2 [place] body weight in kilograms 56 kg O2 % BldC Oximetry 97 % 01/27/2018 8:13am BP Systolic Sitting Right Arm 171 mmHg jn 142/86 BP Diastolic Sitting Right Arm 91 mmHg jn 142/86 Body Temperature 98.0 F Heart Rate 79 /min Respiratory Rate 16 /min Height 64.5 inches 5'4.50" Weight 206.00 lb BMI (Body Mass Index) 34.8 kg/m2 BSA (Body Surface Area) 1.99 m2 [place] body weight in kilograms 56 kg O2 % BldC Oximetry 98 % 11/29/2017 3:21pm BP Systolic Sitting Left Arm 147 mmHg BP Diastolic Sitting Left Arm 85 mmHg Body Temperature 98.3 F Heart Rate 81 /min Height 64.5 inches 5'4.50" Weight 202.00 lb BMI (Body Mass Index) 34.1 kg/m2 BSA (Body Surface Area) 1.98 m2 [place] body weight in kilograms 56 kg O2 % BldC Oximetry 96 % 11/15/2017 8:26am BP Systolic 143 mmHg BP Diastolic 84 mmHg Body Temperature 96.1 F Heart Rate 75 /min Respiratory Rate 18 /min Weight 199.25 lb O2 % BldC Oximetry 98 % 10/30/2017 10:41am BP Systolic 153 mmHg BP Diastolic 81 mmHg Body Temperature 97.5 F Heart Rate 59 /min Respiratory Rate 20 /min Weight 196.12 lb O2 % BldC Oximetry 96 % Ra Pain Level 0 10/08/2017 8:23am BP Systolic Sitting Left Arm 171 mmHg recheck 164/85 BP Diastolic Sitting Left Arm 87 mmHg recheck 164/85 Body Temperature 98.5 F Heart Rate 65 /min Respiratory Rate 12 /min Height 64.5 inches 5'4.50" Weight 198.00 lb BMI (Body Mass Index) 33.5 kg/m2 BSA (Body Surface Area) 1.96 m2 [place] body weight in kilograms 56 kg O2 % BldC Oximetry 98 % Results Test Date Facility Test Result H/L Range Note Protein/Creat 2018 [facility] Creatinine,Ur 68.0 mg/dL Not Estab. [address] ine Ratio,Urine [place], [place] [id number] [phone] Protein,Total,Urine 57.1 mg/dL Not Estab. Protein/Creatinine Ratio 840 MG/GCRE High 0-200 2 Laboratory test 2018 [facility] Urine 58 mg/dL finding [address] Protein,Random [place], [place] [id number] [phone] Comp Metabolic 01/28/2018 [facility] Sodium 140 mmol/ L N 135-1 3 Panel [phone] Potassium 3.9 mmol/L N 3.5-5.0 Chloride 107 mmol/L N 101-111 Co2 Carbon Dioxide 25 mmol/L N 22-32 Anion Gap 8 mmol/L N 2-11 Calcium 9.5 mg/dL N 8.6-10.3 Albumin 4.3 g/dL N 3.2-5.2 Total Bilirubin 0.60 mg/dL N 0.2-1.0 Glucose 106 mg/dL High 70-100 Blood Urea Nitrogen 26 mg/dL High 6-24 Creatinine 0.97 mg/dL High 0.51-0.95 BUN/Creatinine Ratio 26.8 High 8-20 Total Protein 7.6 g/dL N 6.4-8.9 Globulin 3.3 g/dL N 2-4 Albumin/Globulin Ratio 1.3 N 1-3 Alkaline Phosphatase 74 U/L N 34-104 Alt 25 U/L N 7-52 Ast 25 U/L N 13-39 Egfr Non- 58.2 >60 Egfr 70.4 >60 4 CBC Auto Diff 01/28/2018 [facility] White Blood 9.7 10^3/uL N 3.5-10.8 [phone] Count Red Blood Count 4.30 10^6/uL N 4.00-5.40 Hemoglobin 13.1 g/dL N 12.0-16.0 Hematocrit 38 % N 35-47 Mean Corpuscular Volume 89 fL N 80-97 Mean Corpuscular Hemoglobin 31 pg N 27-31 Mean Corpuscular HGB Conc 35 g/dL N 31-36 Red Cell Distribution Width 13 % N 10.5-15 Platelet Count 367 10^3/uL N 150-450 Mean Platelet Volume 7.8 fL N 7.4-10.4 Abs Neutrophils 5.5 10^3/uL N 1.5-7.7 Abs Lymphocytes 3.2 10^3/uL N 1.0-4.8 Abs Monocytes 0.7 10^3/uL N 0-0.8 Abs Eosinophils 0.3 10^3/uL N 0-0.6 Abs Basophils 0 10^3/uL N 0-0.2 Abs Nucleated RBC 0 10^3/uL Granulocyte % 56.6 % Lymphocyte % 32.6 % Monocyte % 7.1 % Eosinophil % 3.2 % Basophil % 0.5 % Nucleated Red Blood Cells % 0.1 Laboratory test 01/28/2018 [facility] Erythrocyte Sed 38 mm/Hr High 0-30 5 finding [phone] Rate Laboratory 01/28/2018 N2N/CCD Import Absolute 0 10^3/ul 0-0.2 Studies Basophils (auto) Absolute Eosinophils (auto) 0.3 10^3/ul 0-0.6 Absolute Lymphocytes (auto) 3.2 10^3/ul 1.0-4.8 Absolute Monocytes (auto) 0.7 10^3/ul 0-0.8 Absolute Neutrophils (auto) 5.5 10^3/ul 1.5-7.7 Alanine Aminotransferase (Alt/SGPT) 25 U/L 7-52 Albumin 4.3 g/dL 3.2-5.2 Albumin/Globulin Ratio 1.3 1-3 Alkaline Phosphatase 74 U/L 34-104 Anion Gap 8 mmol/L 2-11 Aspartate Amino Transf (Ast/Sgot) 25 U/L 13-39 BUN/Creatinine Ratio 26.8 High 8-20 Basophils (%) (Auto) 0.5 % Blood Urea Nitrogen 26 mg/dL High 6-24 Calcium Level 9.5 mg/dL 8.6-10.3 Carbon Dioxide Level 25 mmol/L 22-32 Chloride Level 107 mmol/L 101-111 Creatinine 0.97 mg/dL High 0.51-0.95 Eosinophils (%) (Auto) 3.2 % Erythrocyte Sedimentation Rate 38 mm/Hr High 0-30 Estimated GFR () 70.4 Estimated GFR (Non- 58.2 Globulin 3.3 g/dL 2-4 Glucose Level 106 mg/dL High 70-100 Hematocrit 38 % 35-47 Hemoglobin 13.1 g/dL 12.0-16.0 Lymphocytes (%) (Auto) 32.6 % Mean Corpuscular Hemoglobin 31 pg 27-31 Mean Corpuscular Hemoglobin Concent 35 g/dL 31-36 Mean Corpuscular Volume 89 fL 80-97 Mean Platelet Volume 7.8 fL 7.4-10.4 Monocytes (%) (Auto) 7.1 % Neutrophils (%) (Auto) 56.6 % Nucleated RBC Absolute Count (auto) 0 10^3/ul Nucleated Red Blood Cells % 0.1 Platelet Count 367 10^3/ul 150-450 Potassium Level 3.9 mmol/L 3.5-5.0 Red Blood Count 4.30 10^6/ul 4.00-5.40 Red Cell Distribution Width 13 % 10.5-15 Sodium Level 140 mmol/L 135-145 Total Bilirubin 0.60 mg/dL 0.2-1.0 Total Protein 7.6 g/dL 6.4-8.9 White Blood Count 9.7 10^3/ul 3.5-10.8 Laboratory 01/14/2018 [facility] Vitamin 58.5 30.0-100.0 6, 7 test finding [address] D,25-Hydroxy ng/[place] [address] [phone] LDL 01/14/2018 [facility] Cholesterol 211 High <200 [address] mg/[place] [address] [phone] Triglycerides 142 mg/dL <150 9 HDL Cholesterol 41 mg/dL >40 10 LDL-Cholesterol 142 mg/dL < 100 11 Glycohemoglobin A1c 01/14/2018 [facility] Glycohemoglobin 6.2 % N 4.2-6.[address] (A1c) [place], [place] [address] [phone] eAG 131 mg/dL Comprehensive Metabolic 01/14/2018 [facility] Glucose 99 mg/dL N 74-[address] [place] [address] [phone] BUN 16 mg/dL N 7-18 Creatinine 1.1 mg/dL N 0.6-1.3 Glom Filtration Rate, Estimate 53 mL/min >60 If >60 mL/min >60 13 BUN/Creat 14.5 ratio Sodium 141 mmol/L N 136-145 Potassium 4.0 mmol/L N 3.5-5.1 Chloride 107 mmol/L N 98-107 Carbon Dioxide 26 mmol/L N 21-32 Anion Gap 8 mEq/L N 8-16 Calcium 8.7 mg/dL N 8.5-10.1 Total Protein 8.2 g/dL N 6.4-8.2 Albumin 3.6 g/dL N 3.4-5.0 Globulin 4.6 g/dL High 1.9-4.3 Alb/Glob 0.8 ratio Bilirubin,Total 0.5 mg/dL N 0.2-1.0 Sgot/Ast 27 U/L N 15-37 SGPT/Alt 37 U/L N 12-78 Alkaline Phosphatase 88 U/L N 45-117 Protein/Creatinine 11/15/2017 [facility] Creatinine,Urine 188.1 Not 14 Ratio,Urine [address] mg/dL Estab. [place], [place] [id number] [phone] Protein,Total,Urine 72.6 mg/dL Not Estab. Protein/Creatinine Ratio 386 MG/GCRE High 0-200 15 Urine Culture 11/15/2017 [facility] Urine ESCHERICHIA COLI Abnormal [address] Culture [place], [place] [id number] [phone] Quantity 50,000 - 100,000 <SEE NOTE> 17 Urine Culture MIXED URETHRAL F <SEE NOTE> 18 Quantity 10,000 - 50,000 <SEE NOTE> 19 Escherichia Coli 11/15/2017 [facility] Nitrofurantoin [address] [place] [address] [phone] Trimethoprim/Sulfamethoxazole <=20 S Ampicillin <=2 S Cefazolin <=4 S Ampicillin/Sulbactam <=2 S Ciprofloxacin <=0.25 S Piperacillin/Tazobactam <=4 S Ceftazidime <=1 S Ceftriaxone <=1 S Cefepime <=1 S Levofloxacin <=0.12 S Imipenem <=0.25 S Gentamicin <=1 S Tobramycin <=1 S Urine Dipstick 11/15/2017 [facility] Inhouse Ua Color Yellow Yellow Ua Clarity Clear Clear Ua Leuko Positive (2+) Negative Ua Nitrite Negative Negative Ua Urobilinogen 3.5 High 0.2 - 1.0 E.U./dL Ua Protein Positive (1+) Negative Ua PH 5.5 Low 6.5-7.5 Ua Blood Positive (3+) Negative Ua Specific [place] 1.030 1.010-1.030 Ua Ketones Negative Negative Ua Bilirubin Negative Negative Ua Glucose Negative Negative Ua RFX Micro & Culture 11/15/2017 [facility] Urine Color YELLOW Yellow II [address] [place] [address] [phone] Urine Clarity TURBID Clear Urine Glucose - Dipstick NEGATIVE mg/dL Negative Urine Bilirubin - Dipstick NEGATIVE Negative Urine Ketone NEGATIVE mg/dL Negative Urine Specific [place] 1.025 N 1.010-1.030 Urine Blood LARGE Abnormal Negative Urine PH 6.0 Low 6.5-7.5 Urine Protein - Dipstick 30 mg/dL High Negative Urine Urobilinogen - Dipstick 0.2 E.U./dL N 0.2-1.0 Urine Nitrite - Dipstick NEGATIVE Negative Urine Leuk Esterase MODERATE Abnormal Negative Urine RBC 0-2 rbc/hpf 0-2 Urine WBC 0-2 wbc/hpf 0-7 Urine Epithelial Cells VERY FEW /lpf None Seen Urine Bacteria MODERATE Abnormal None Seen Urine Amorph Sediment LARGE Negative Source: URINE, CLEAN CAT <SEE NOTE> 20 Urine Dipstick 10/30/2017 [facility] Inhouse Ua Color yellow Yellow Ua Clarity cloudy Clear Ua Leuko - Negative Ua Nitrite - Negative Ua Urobilinogen 0.2 0.2 - 1.0 E.U./dL Ua Protein 2+ High Negative Ua PH 5.0 Low 6.5-7.5 Ua Blood 3 High Negative Ua Specific [place] 1.030 1.010-1.030 Ua Ketones trace Negative Ua Bilirubin - Negative Ua Glucose - Negative HPV High Risk - Alt 10/30/2017 [facility] HPV High Risk Results on 21 Ref Lab [address] [place] [address] [phone] Escherichia Coli 10/30/2017 [facility] Nitrofurantoin <=16 [address] [place] [address] [phone] Trimethoprim/Sulfamethoxazole <=20 S Ampicillin 4 S Cefazolin <=4 S Ampicillin/Sulbactam <=2 S Ciprofloxacin <=0.25 S Piperacillin/Tazobactam <=4 S Ceftazidime <=1 S Ceftriaxone <=1 S Cefepime <=1 S Levofloxacin <=0.12 S Imipenem <=0.25 S Gentamicin <=1 S Tobramycin <=1 S Urine Culture 10/30/2017 [facility] Urine ESCHERICHIA COLI Abnormal [address] [place] [address] [phone] Quantity > 100,000 CFU/mL 23 Urine Culture URETHRAL GÓMEZ Quantity < 10,000 CFU/mL Comprehensive Metabolic 10/11/2017 [facility] Glucose 106 mg/dL N 74-106 24 Panel [address] [place] [address] [phone] BUN 22 mg/dL High 7-18 Creatinine 1.0 mg/dL N 0.6-1.3 Glom Filtration Rate, Estimate 60 mL/min >60 If >60 mL/min >60 25 BUN/Creat 22.0 ratio Sodium 141 mmol/L N 136-145 Potassium 4.1 mmol/L N 3.5-5.1 Chloride 107 mmol/L N 98-107 Carbon Dioxide 28 mmol/L N 21-32 Anion Gap 6 mEq/L Low 8-16 Calcium 8.9 mg/dL N 8.5-10.1 Total Protein 8.4 g/dL High 6.4-8.2 Albumin 3.7 g/dL N 3.4-5.0 Globulin 4.7 g/dL High 1.9-4.3 Alb/Glob 0.8 ratio Bilirubin,Total 0.7 mg/dL N 0.2-1.0 Sgot/Ast 30 U/L N 15-37 SGPT/Alt 30 U/L N 12-78 Alkaline Phosphatase 80 U/L N 45-117 CBS W/Automated Diff 10/11/2017 [facility] White Blood 9.1 K/uL N 3.1-10.[address] [place] [address] [phone] Red Blood Count 4.63 M/uL N 3.90-5.40 Hemoglobin 14.2 gm/dL N 11.6-15.8 Hematocrit 41.9 % N 36.0-46.1 Mean Cell Volume 90.5 fl N 80.9-99.0 Mean Corpuscular HGB 30.7 pg N 25.9-32.7 Mean Corpuscular HGB Conc 33.9 g/dL N 30.8-34.3 Platelet Count 353 K/uL N 155-360 Red Cell Distri Width SD 42.2 fl N 3-47 Red Cell Distri Width %CV 13.1 % N 11.7-14.4 Mean Platelet Volume 9.7 fL N 8.9-12.4 Neut% 55.6 % N 40.4-72.8 Lymph % 34.5 % N 20.0-42.0 Petroleum % 6.1 % N 4.3-13.2 Eo% 3.4 % N 0.0-6.6 Bas% 0.4 % N 0.0-1.1 Neut# 5.03 K/uL N 1.8-7.0 Lymph # 3.12 K/uL N 1.0-4.0 Petroleum # 0.55 K/uL N 0.3-0.9 Eos # 0.31 K/uL N 0.0-0.5 Baso # 0.04 K/uL N 0.0-0.1 Laboratory test 10/11/2017 [facility] Vitamin 29.2 Low 30.0-100.0 [address] D,25-Hydroxy ng/mL [place], [place] [address] [phone] LDL Cholesterol 10/11/2017 [facility] Cholesterol 236 High <200 [address] mg/[place] [address] [phone] Triglycerides 149 mg/dL <150 28 HDL Cholesterol 42 mg/dL >40 29 LDL-Cholesterol 164 mg/dL < 100 30 Glycohemoglobin A1c 10/11/2017 [facility] Glycohemoglobin 6.1 % N 4.2-6.[address] (A1c) [place], [place] [address] [phone] eAG 128 mg/dL Ua RFX Micro & Culture 10/08/2017 [facility] Urine Color YELLOW Yellow [address] [place] [address] [phone] Urine Clarity CLEAR Clear Urine Glucose - Dipstick NEGATIVE mg/dL Negative Urine Bilirubin - Dipstick NEGATIVE Negative Urine Ketone NEGATIVE mg/dL Negative Urine Specific [place] 1.020 N 1.010-1.030 Urine Blood MODERATE Abnormal Negative Urine PH 6.0 Low 6.5-7.5 Urine Protein - Dipstick 100 mg/dL High Negative Urine Urobilinogen - Dipstick 0.2 E.U./dL N 0.2-1.0 Urine Nitrite - Dipstick NEGATIVE Negative Urine Leuk Esterase SMALL Abnormal Negative Urine RBC 2-5 rbc/hpf 0-2 Urine WBC 5-10 wbc/hpf 0-7 Urine Epithelial Cells FEW /lpf None Seen Urine Calcium Oxalate Crystals FEW None Seen Urine Bacteria FEW None Seen Protein/Creatinine 10/08/2017 [facility] Creatinine,Urine 128.9 Not Ratio,Urine [address] mg/dL Estab. [place], [place] [id number] [phone] Protein,Total,Urine 78.4 mg/dL Not Estab. Protein/Creatinine Ratio 608 MG/GCRE High 0-200 33 Urine Culture 10/08/2017 [facility] Urine ESCHERICHIA COLI Abnormal [address] [place] [address] [phone] Quantity > 100,000 CFU/mL 35 Urine Culture MIXED URETHRAL F <SEE NOTE> 36 Quantity 10,000 - 50,000 <SEE NOTE> 37 Escherichia Coli 10/08/2017 [facility] Nitrofurantoin <=[address] [place] [address] [phone] Trimethoprim/Sulfamethoxazole <=20 S Ampicillin 4 S Cefazolin <=4 S Ampicillin/Sulbactam <=2 S Ciprofloxacin <=0.25 S Piperacillin/Tazobactam <=4 S Ceftazidime <=1 S Ceftriaxone <=1 S Cefepime <=1 S Levofloxacin <=0.12 S Imipenem <=0.25 S Gentamicin <=1 S Tobramycin <=1 S Urine Dipstick 10/08/2017 [facility] Inhouse Ua Color yellow Yellow Ua Clarity cloudy Clear Ua Leuko 2+ High Negative Ua Nitrite - Negative Ua Urobilinogen trace Low 0.2 - 1.0 E.U./dL Ua Protein 1+ High Negative Ua PH 6 Low 6.5-7.5 Ua Blood 2+ High Negative Ua Specific [place] 1.020 1.010-1.030 Ua Ketones - Negative Ua Bilirubin - Negative Ua Glucose - Negative 1 I10 2 INFCE Result Units: mg/g creat Performed at: RN - [facility] [address] [id number] [employer] Machine Operator: Maia Todd MD, Phone: [phone] [id number] 4 Because ethnic data is not always readily [...] 15-29 5 Kidney failure <15 (or dialysis) 5 [id number] 6 E78.2 7 Vitamin D deficiency has been defined by the [employer] and an Endocrine Society practice guideline as a level of serum 25-OH vitamin D less than 20 ng/mL (1,2). The Endocrine Society went on to further define vitamin D insufficiency as a level between 21 and 29 ng/mL (2). 1. IOM ([employer] of [employer]). 2010. Dietary reference intakes for calcium and D. [place]: The National Academies Press. 2. Anatoliy TROY, Ivanna EMERSON, Mariluz MACKENZIE, et al. Evaluation, treatment, and prevention of vitamin D deficiency: an Endocrine Society clinical practice guideline. JCEM. 2010; 96(7):1911-30. Performed at: RN - [facility] [address] [id number] [employer] Machine Operator: Maia Todd MD, Phone: [phone] 8 Reference Guidelines*: Desirable: ........... < 200 mg/dL Borderline High: ..... 200-239 mg/dL High: ................ >=240 mg/dL * The National Cholesterol Education Program (NCEP) 9 Reference Guidelines*: Normal: ............. < 150 mg/dL Borderline High: .... 150-199 mg/dL High: ............... 200-499 mg/dL Very High: .......... > 500 mg/dL * Source: National Cholesterol Education Program (NCEP) 10 Reference Guidelines*: Low HDL: ..... < 40 mg/dL Normal: ..... 40-60 mg/dL Desirable: ... > 60 mg/dL *The National Cholesterol Education Program(NCEP) 11 Reference Guidelines*: Optimal:........... <100 mg/dL Near Optimal....... 100-129 mg/dL Borderline High.... 130-159 mg/dL High............... 160-189 mg/dL Very High.......... >=190 mg/dL * Source: National Cholesterol Education Program (NCEP) 12 Elevated levels of HbA1c suggest the need for more aggressive treatment of glycemia. The [place] Diabetes Association recommends that a primary goal of therapy should be a HbA1c of <7% and that physicians should re-evaluate the treatment regimen in patients with HbA1c values consistently >8%. 13 Note: Persistent reduction for 3 months or more in an eGFR <60 mL/min/1.73 m2 defines CKD. Patients with eGFR values >/=60 mL/min/1.73 m2 may also have CKD if evidence of persistent proteinuria is present. The original MDRD equation for estimated GFR is not valid for patients less than 18 years of age. Additional information may be found at www.kdoqi.org. 14 R82.99,R82.99 15 INFCE Result Units: mg/g creat Performed at: RN - [facility] [address] [id number] [employer] Machine Operator: Maia Todd MD, Phone: [phone] 16 ESCHERICHIA COLI 17 50,000 - 100,000 CFU/mL 18 MIXED URETHRAL GÓMEZ 19 10,000 - 50,000 CFU/mL 20 URINE, CLEAN CATCH 21 Hard copy of report to be sent by mail Report may be viewed in Clinical Review, or in PCI under Medical Record Forms 22 ESCHERICHIA COLI 23 > 100,000 CFU/mL 24 Z00.00 E66.09 E55.9 25 Note: Persistent reduction for 3 months or more in an eGFR <60 mL/min/1.73 m2 defines CKD. Patients with eGFR values >/=60 mL/min/1.73 m2 may also have CKD if evidence of persistent proteinuria is present. The original MDRD equation for estimated GFR is not valid for patients less than 18 years of age. Additional information may be found at www.kdoqi.org. 26 Vitamin D deficiency has been defined by the [employer] and an Endocrine Society practice guideline as a level of serum 25-OH vitamin D less than 20 ng/mL (1,2). The Endocrine Society went on to further define vitamin D insufficiency as a level between 21 and 29 ng/mL (2). 1. IOM ([employer]). 2010. Dietary reference intakes for calcium and D. [place]: The National Academies Press. 2. Anatoliy MF, Ivanna [place], Mariluz MACKENZIE, et al. Evaluation, treatment, and prevention of vitamin D deficiency: an Endocrine Society clinical practice guideline. JCEM. 2010; 96(7):1911-30. Performed at: RN - [facility] [address] [id number] [employer] Machine Operator: Maia Todd MD, Phone: [phone] 27 Reference Guidelines*: Desirable: ........... < 200 mg/dL Borderline High: ..... 200-239 mg/dL High: ................ >=240 mg/dL * The National Cholesterol Education Program (NCEP) 28 Reference Guidelines*: Normal: ............. < 150 mg/dL Borderline High: .... 150-199 mg/dL High: ............... 200-499 mg/dL Very High: .......... > 500 mg/dL * Source: National Cholesterol Education Program (NCEP) 29 Reference Guidelines*: Low HDL: ..... < 40 mg/dL Normal: ..... 40-60 mg/dL Desirable: ... > 60 mg/dL *The National Cholesterol Education Program(NCEP) 30 Reference Guidelines*: Optimal:........... <100 mg/dL Near Optimal....... 100-129 mg/dL Borderline High.... 130-159 mg/dL High............... 160-189 mg/dL Very High.......... >=190 mg/dL * Source: National Cholesterol Education Program (NCEP) 31 Elevated levels of HbA1c suggest the need for more aggressive treatment of glycemia. The [place] Diabetes Association recommends that a primary goal of therapy should be a HbA1c of <7% and that physicians should re-evaluate the treatment regimen in patients with HbA1c values consistently >8%. 32 R82.99 33 INFCE Result Units: mg/g creat Performed at: RN - [facility] [address] [id number] [employer] Machine Operator: Maia Todd MD, Phone: [phone] 34 ESCHERICHIA COLI 35 > 100,000 CFU/mL 36 MIXED URETHRAL GÓMEZ 37 10,000 - 50,000 CFU/mL Procedures Date Code Description Status 10/30/2017 [id number] Bone Mineral Density Test Completed 02/18/2017 [id number] Colonoscopy Completed 05/29/2012 99990 ECHO [employer] Performance Continuous Completed Electrocardio 06/25/2008 36587 Stress Test Interpre And Report Only Completed 06/25/2008 23621 Stress Test Physician Super Only Completed 06/10/2008 89685 Stress Test Interpre And Report Only Completed 06/10/2008 60699 Stress Test Physician Super Only Completed 05/01/2007 79220 Doppler ECHO Color Flow Mapping Completed 05/01/2007 10673 Doppler Echocardiogram Complete Completed 05/01/2007 30435 Echocariogram 2D Complete Completed 05/01/2007 22291 Stress Test Interpre And Report Only Completed 05/01/2007 39268 Stress Test Physician Super Only Completed Encounters Type Date Location Provider Dx Diagnosis Office Visit 2018 [facility], L95.9 Vasculitis limited 1:00p Office [place] Gloria, to the skin, MEDICAL RECORDS DIRECTOR-C, CNM unspecified I10 Essential (primary) hypertension Office Visit 01/27/2018 8:30a [facility] Gloria Collier, M79.671 Pain in Office MS, MEDICAL RECORDS DIRECTOR-C, CNM right foot I10 Essential (primary) hypertension L40.8 Other psoriasis N18.3 Chronic kidney disease, stage 3 (moderate) E55.9 Vitamin D deficiency, unspecified Z87.440 Personal history of urinary (tract) infections E78.2 Mixed hyperlipidemia R73.9 Hyperglycemia, unspecified Office Visit 11/29/2017 3:30p Primary Care Amira Z87.440 Personal history Office Gloria , of urinary MEDICAL RECORDS DIRECTOR-C, CNM (tract) infections I10 Essential (primary) hypertension E66.9 Obesity, unspecified L40.0 Psoriasis vulgaris Office Visit 11/15/2017 8:30a Primary Care AmiraGloria, R82.99 Other abnormal Office MS, MEDICAL RECORDS DIRECTOR-C, CNM findings in urine J30.9 Allergic rhinitis, unspecified I10 Essential (primary) hypertension H65.193 Other acute nonsuppurative otitis media, bilateral E55.9 Vitamin D deficiency, unspecified L40.0 Psoriasis vulgaris Z71.3 Dietary counseling and surveillance Office Visit 10/30/2017 11:00a [facility] Care Gloria Collier, Z01.419 Encntr for flumer Office MS, MEDICAL RECORDS DIRECTOR-C, CNM exam (general) (routine) w/o abn findings I10 Essential (primary) hypertension R82.99 Other abnormal findings in urine E55.9 Vitamin D deficiency, unspecified E78.2 Mixed hyperlipidemia E66.9 Obesity, unspecified N94.10 Unspecified dyspareunia Z71.3 Dietary counseling and surveillance Office Visit 10/08/2017 8:40a Primary Care Rebecca Braga, Z00.00 Encntr for Office general adult medical exam w/o abnormal findings E66.09 Other obesity due to excess calories L40.0 Psoriasis vulgaris I10 Essential (primary) hypertension R82.99 Other abnormal findings in urine Plan of Treatment Future Appointment(s):04/29/2018 9:40 am - Rebecca Braga MD at [facility]ptglx8701/31/2018 - Gloria Collier, MS, MEDICAL RECORDS DIRECTOR-C, CNML95.9 Vasculitis limited to the skin, unspecifiedComments:--Finish prednisone, monitor symptoms and report any changes-- Patient counseled on possible etiologies, one being related to RA. We will get a rheumatology consult. I will defer to them to order further testing.Referral:Vadim Wick MD, [id number] Essential (primary) hypertensionNew Medication:Hydrochlorothiazide 12.5 mg - 1 tab by mouth every morningNew Labs:Comprehensive Metabolic Panel, Scheduled: 02/06/18Comments:-- Limit salt intake. The [employer] recommends 1,500 mg a day as an upper limit for all adults. --Drinking too much alcohol can increase blood pressure. Guidelines recommend no more than 1 alcoholic beverage a day for women.--Increase physical activity to 30 minutes on most days, as tolerated.-- Lose weight.--Take blood pressure medication, as directed. --Reduce stress. Some things that may help are to avoid triggers, practice gratitude, make time to relax and do activities you enjoy, meditation -- We will add HCTZ 12.5 mg po QdayAllFollow up:RTO 2 weeks for F/U labs Referral to rheumatology
== END 2018-03-06 10:21 | disposition left against medical advice (07) ==
LOC: UCCORT 09:35
DX: L98.9 Disorder of the skin and subcutaneous tissue, unspecified (principal); Z53.21 Procedure and treatment not carried out due to patient leaving prior to being seen by health care provider

== ENCOUNTER 2018-05-03 07:01 | Emergency (ER) | payer BC, OTHER ==
--- OUTSIDE RECORDS SUMMARY | 2018-05-03 07:07 | XMS REPORT | Continuity of Care Document ---
:1955 External Reference #:[id number] Author Name Rebecca Braga MD Address [address] [place] [address] Care Team Providers Name Role Phone Rebecca Braga MD Care Team Information Scraper Hand Unavailable Rebecca Braga MD Primary Care Physician Unavailable Payers Date Identification Numbers Payment Provider Subscriber Policy Number: [id number] [facility] [place]elvira PayID: [id number] [address] [place] [address] Expires: 2017 Policy Number: [id number] [facility] Jolanta Anderson Makenzie PayID: [id number] [address] [address] [place] [address] Advance Directives Description No Information Available Problems Date Description Provider Status Onset: 10/08/2017 Obesity Rebecca Braga MD Active Onset: 10/08/2017 Psoriasis Rebecca Braga MD Active Onset: 10/08/2017 Essential hypertension Rebecca Braga MD Active Family History Date Family Member(s) Observation Comments Father Unknown Mother due to COPD () Mother due to Heart Disease () Social History Type Date Description Comments Sex Unknown Marital Status 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 ETOH Use Denies alcohol use Tobacco Use Start: Unknown End: Patient is a former 30-40 years ago Unknown smoker Recreational Drug Use Denies Drug Use Smoking Status Reviewed: 03/31/18 Patient is a former 30-40 years ago smoker Allergies, Adverse Reactions, Alerts Date Description Reaction Status Severity Comments 10/08/2017 Penicillin Active anaphylaxis 10/08/2017 Benadryl Active off balance 02/01/2018 Gluten Psoriasis, Diarrhea Active 10/08/2017 Valproic Acid Active anaphylaxis 10/08/2017 Dilantin Active anaphylaxis 10/08/2017 FD&C Red 40 Varma Active kidney failure 10/08/2017 Dairy Active 10/08/2017 Soy Germ Active Medications Medication Date Status Form Strength Qnty SIG Indications Ordering Provider Nystop 03/17 Active Powder [id number] 60gm apply to B37.3 Gag t/GM groin area Amy area twice e, MS, a day EVISCERATOR-C, CNM [facility] Clotrimazole 03/17 Active Cream 1% 28.40 Apply to B37.2 Gag 0gm inner Amy thighs e, MS, twice a EVISCERATOR-C, day CNM Hydrochlorothiazi 01/31 Active Tablets 12.5mg 30tab 1 tab by I10 Gagen, s mouth Amy every e, MS, morning EVISCERATOR-C, CNM Omron 7 Series 11/15 Active Device 1unit use daily I10 Gagen, Blood Pressure s as Amy Monitor directed e, MS, to monitor EVISCERATOR-C, bp/ dx:htn CNM Losartan 10/30 Active Tablets 50mg 180ta 1 by mouth I10 Gagen, Potassium bs twice a Amy day e, MS, EVISCERATOR-C, CNM Metoprolol 00 Active Tablets 25mg 60tab 2 by mouth Gagen, Tartrate /0000 s every day Amy e, MS, EVISCERATOR-C, CNM Fluticasone 11/15 Hx Suspension 50mcg/Act 32gm 2 sprays J30.9 Gagen, Propionate intranasal Amy - every day e, MS, 01/27 EVISCERATOR-C, CNM Loratadine 11/15 Hx Capsules 10mg 30cap take one J30.9 Gagen, s capsule at Amy - night for e, MS, 01/27 allergies EVISCERATOR-C, CNM Nitrofurantoin 11/01 Hx Capsules 100mg 14cap Take one Gagen, Monohyd Macro s capsule Amy - twice a e, MS, 11/29 day EVISCERATOR-C, CNM Losartan 10/08 Hx Tablets 50mg 30tab 1 tab by I10 Maria Luz, s mouth MD Rebecca - every day 10/30 Clobetasol 10/08 Hx Liquid 0.05% 59ml use twice L40.0 Maria Luz, daily for MD Rebecca - up to two 01/27 weeks external ear canal prn Otezla Hx Tablets 30mg TK 1 T PO Unknown /0000 bid - 01/27 Neomycin/Polymyxi Hx Suspension [id number] Shake LQ Unknown n/Hydrocortisone /0000 -1 And Int 4 (Otic) - GTS In AU 01/27 qid prn /2017 Immunizations Description No Information Available Vital Signs Date Vital Result Comment 03/31/2018 2:23pm BP Systolic Sitting Left Arm 144 mmHg BP Diastolic Sitting Left Arm 88 mmHg Body Temperature 99.2 F Heart Rate 100 /min rapid Respiratory Rate 24 /min Height 64.5 inches 5'4.50" Weight 194.00 lb BMI (Body Mass Index) 32.8 kg/m2 BSA (Body Surface Area) 1.94 m2 [place] body weight in kilograms 56 kg O2 % BldC Oximetry 98 % ra 03/17/2018 8:38am BP Systolic Sitting Right Arm 133 mmHg BP Diastolic Sitting Right Arm 80 mmHg Body Temperature 98.4 F Heart Rate 72 /min Height 64.5 inches 5'4.50" Weight 194.00 lb BMI (Body Mass Index) 32.8 kg/m2 BSA (Body Surface Area) 1.94 m2 [place] body weight in kilograms 56 kg O2 % BldC Oximetry 100 % 2018 1:06pm BP Systolic Sitting Right Arm 176 mmHg Jn 150/85 BP Diastolic Sitting Right Arm 89 mmHg Jn 150/85 Body Temperature 98.3 F Heart Rate 72 /min Height 64.5 inches 5'4.50" Weight 205.00 lb BMI (Body Mass Index) 34.6 kg/m2 BSA (Body Surface Area) 1.99 m2 [place] body weight in kilograms 56 kg O2 % BldC Oximetry 97 % 01/27/2018 8:13am BP Systolic Sitting Right Arm 171 mmHg jn 142/86 BP Diastolic Sitting Right Arm 91 mmHg jn 142/86 Body Temperature 98.0 F Heart Rate 79 /min Respiratory Rate 16 /min Height 64.5 inches 5'4.50" Weight 206.00 lb BMI (Body Mass Index) 34.8 kg/m2 BSA (Body Surface Area) 1.99 m2 [place] body weight in kilograms 56 kg O2 % BldC Oximetry 98 % 11/29/2017 3:21pm BP Systolic Sitting Left Arm 147 mmHg BP Diastolic Sitting Left Arm 85 mmHg Body Temperature 98.3 F Heart Rate 81 /min Height 64.5 inches 5'4.50" Weight 202.00 lb BMI (Body Mass Index) 34.1 kg/m2 BSA (Body Surface Area) 1.98 m2 [place] body weight in kilograms 56 kg O2 [...] kg/m2 BSA (Body Surface Area) 1.96 m2 [place] body weight in kilograms 56 kg O2 % BldC Oximetry 98 % Results Test Date Facility Test Result H/L Range Note Affirm 03/17/2018 [facility] Trichomonas Negative [Negative] 1 Vaginitis Panel [address] [place] [address] [phone] Gardnerella vaginalis Negative [Negative] Sindhu species Negative [Negative] 2 Genital Culture W/ 03/17/2018 [facility] Gram Stain GRAM STAIN INDIC [address] Stain [address] <SEE NOTE> [place] [address] [phone] Gram Stain FEW GRAM POSITIV <SEE NOTE> 4 Gram Stain RARE WHITE BLOOD <SEE NOTE> 5 Genital Culture GENITAL GÓMEZ Laboratory Studies 02/22/2018 N2N/CCD Import Absolute Basophils 0.1 10^3/ ul 0-0.2 (auto) Absolute Eosinophils (auto) 0 10^3/ul 0-0.6 Absolute Lymphocytes (auto) 1.9 10^3/ul 1.0-4.8 Absolute Monocytes (auto) 0.4 10^3/ul 0-0.8 Absolute Neutrophils (auto) 9.7 10^3/ul High 1.5-7.7 Alanine Aminotransferase (Alt/SGPT) 23 U/L 7-52 Albumin 3.9 g/dL 3.2-5.2 Albumin (Pep) 3.5 g/dL Albumin/Globulin (Pep) 0.86 Albumin/Globulin Ratio 1.1 1-3 Alkaline Phosphatase 79 U/L 34-104 Glyzk-9-Hdpdjtavz 0.2 g/dL Crkrp-8-Ogdqfxbbg 1.0 g/dL Anion Gap 10 mmol/L 2-11 Anti-Nuclear Antibody (Lab) 0.4 U Aspartate Amino Transf (Ast/Sgot) 22 U/L 13-39 BUN/Creatinine Ratio 26.6 High 8-20 Basophils (%) (Auto) 0.4 % Dmyx-7-Nvuobubp 1.4 g/dL High Blood Urea Nitrogen 41 mg/dL High 6-24 C-Reactive Protein 8.91 mg/L High 0-8.00 Calcium Level 9.4 mg/dL 8.6-10.3 Carbon Dioxide Level 21 mmol/L Low 22-32 Chloride Level 106 mmol/L 101-111 Creatinine 1.54 mg/dL High 0.51-0.95 Eosinophils (%) (Auto) 0 % Erythrocyte Sedimentation Rate 34 mm/Hr High 0-30 Estimated GFR () 41.2 Estimated GFR (Non- 34.0 Gamma Globulins 1.5 g/dL Globulin 3.5 g/dL 2-4 Glucose Level 162 mg/dL High 70-100 Hematocrit 37 % 35-47 Hemoglobin 12.5 g/dL 12.0-16.0 Hepatitis B Surface Antibody, Quant 15.85 mIU/mL Lymphocytes (%) (Auto) 16.0 % Mean Corpuscular Hemoglobin 30 pg 27-31 Mean Corpuscular Hemoglobin Concent 34 g/dL 31-36 Mean Corpuscular Volume 89 fL 80-97 Mean Platelet Volume 8.5 fL 7.4-10.4 Monocytes (%) (Auto) 3.5 % Neutrophils (%) (Auto) 80.1 % Nucleated RBC Absolute Count (auto) 0 10^3/ul Nucleated Red Blood Cells % 0 Platelet Count 353 10^3/ul 150-450 Potassium Level 4.1 mmol/L 3.5-5.0 Red Blood Count 4.19 10^6/ul 4.00-5.40 Red Cell Distribution Width 13 % 10.5-15 Sodium Level 137 mmol/L 135-145 Total Bilirubin 0.40 mg/dL 0.2-1.0 Total Protein 7.4 g/dL 6.4-8.9 Total Protein (Pep) 7.5 g/dL White Blood Count 12.0 10^3/ul High 3.5-10.8 Laboratory test 2018 [facility] Urine 58 mg/dL [address] Protein,Random [place], [place] [id number] [phone] Protein/Creatin 2018 [facility] Creatinine,Urine 68.0 mg/dL Not ine Ratio,Urine [address] Estab. [place], [place] [id number] [phone] Protein,Total,Urine 57.1 mg/dL Not Estab. Protein/Creatinine Ratio 840 MG/GCRE High 0-200 7 Laboratory test 01/28/2018 [facility] Laboratory Erythrocyte Sed 38 mm/Hr High 0-30 8, 9 finding [phone] Rate Laboratory 01/28/2018 N2N/CCD Import Absolute 0 [...] 6.4-8.9 White Blood Count 9.7 10^3/ul 3.5-10.8 CBC Auto Diff 01/28/2018 [facility] Laboratory White Blood 9.7 10^3/uL N 3.5-10.8 [phone] Count Red Blood Count 4.30 10^6/uL N [...] % Nucleated Red Blood Cells % 0.1 Comp Metabolic Panel 01/28/2018 [facility] Laboratory Sodium 140 mmol/L N 135-145 [phone] Potassium 3.9 mmol/L N 3.5-5.0 Chloride 107 [...] Egfr Non- 58.2 >60 Egfr 70.4 >60 10 Laboratory 01/14/2018 [facility] Vitamin 58.5 30.0-100.0 11, test finding [address] D,25-Hydroxy ng/mL 12 [place] [address] [phone] LDL 01/14/2018 [facility] Cholesterol 211 High <200 [address] mg/[place] [address] [phone] Triglycerides 142 mg/dL <150 14 HDL Cholesterol 41 mg/dL >40 15 LDL-Cholesterol 142 mg/dL < 100 16 Glycohemoglobin A1c 01/14/2018 [facility] Glycohemoglobin 6.2 % N 4.2-6.[address] (A1c) [place] [address] [phone] eAG 131 mg/dL Comprehensive Metabolic 01/14/2018 [facility] Glucose 99 mg/dL N 74-106 Panel [address] [place] [address] [phone] BUN 16 mg/dL N 7-18 Creatinine 1.1 mg/dL N 0.6-1.3 Glom Filtration Rate, Estimate 53 mL/min >60 If >60 mL/min >60 18 BUN/Creat 14.5 ratio Sodium 141 mmol/L N [...] 12-78 Alkaline Phosphatase 88 U/L N 45-117 Urine Dipstick 11/15/2017 [facility] Ua Color Yellow Yellow Ua Clarity Clear Clear Ua Leuko Positive (2+) Negative Ua Nitrite Negative Negative Ua Urobilinogen 3.5 High 0.2 - 1.0 E.U./dL Ua Protein Positive (1+) Negative Ua PH 5.5 Low 6.5-7.5 Ua Blood Positive (3+) Negative Ua Specific [place] 1.030 1.010-1.030 Ua Ketones Negative Negative Ua Bilirubin Negative Negative Ua Glucose Negative Negative Escherichia Coli 11/15/2017 [facility] Nitrofurantoin 32 [address] [place] [address] [phone] Trimethoprim/Sulfamethoxazole <=20 S Ampicillin <=2 S Cefazolin <=4 S Ampicillin/Sulbactam <=2 S Ciprofloxacin <=0.25 S Piperacillin/Tazobactam <=4 S Ceftazidime <=1 S Ceftriaxone <=1 S Cefepime <=1 S Levofloxacin <=0.12 S Imipenem <=0.25 S Gentamicin <=1 S Tobramycin <=1 S Urine Culture 11/15/2017 [facility] Urine ESCHERICHIA COLI Abnormal [address] [place] [address] [phone] Quantity 50,000 - 100,000 <SEE NOTE> 21 Urine Culture MIXED URETHRAL F <SEE NOTE> 22 Quantity 10,000 - 50,000 <SEE NOTE> 23 Protein/Creatinine 11/15/2017 [facility] Creatinine,Urine 188.1 Not Ratio,Urine [address] mg/dL Estab. [place], [place] [id number] [phone] Protein,Total,Urine 72.6 mg/dL Not Estab. Protein/Creatinine Ratio 386 MG/GCRE High 0-200 24 Ua RFX Micro & Culture 11/15/2017 [facility] Urine Color YELLOW Yellow II [address] [place] [address] [phone] Urine Clarity TURBID Clear Urine Glucose - Dipstick NEGATIVE mg/dL Negative Urine Bilirubin - Dipstick NEGATIVE Negative Urine Ketone NEGATIVE mg/dL Negative Urine Specific [place] 1.025 N 1.010-1.030 Urine Blood LARGE Abnormal [...] Negative Source: URINE, CLEAN CAT <SEE NOTE> 25 Urine Dipstick 10/30/2017 [facility] Inhouse Ua Color yellow Yellow Ua Clarity cloudy Clear Ua Leuko - Negative Ua Nitrite - Negative Ua Urobilinogen 0.2 0.2 - 1.0 E.U./dL Ua Protein 2+ High Negative Ua PH 5.0 Low 6.5-7.5 Ua Blood 3 High Negative Ua Specific [place] 1.030 1.010-1.030 Ua Ketones trace Negative Ua Bilirubin - Negative Ua Glucose - Negative HPV High Risk - Alt 10/30/2017 [facility] HPV High Risk Results on 26 [address] [place] [address] [phone] Escherichia Coli 10/30/2017 [facility] Nitrofurantoin <=16 [address] [place] [address] [phone] Trimethoprim/Sulfamethoxazole <=20 S Ampicillin 4 S Cefazolin <=4 S Ampicillin/Sulbactam <=2 S Ciprofloxacin <=0.25 S Piperacillin/Tazobactam <=4 S Ceftazidime <=1 S Ceftriaxone <=1 S Cefepime <=1 S Levofloxacin <=0.12 S Imipenem <=0.25 S Gentamicin <=1 S Tobramycin <=1 S Urine Culture 10/30/2017 [facility] Urine ESCHERICHIA COLI Abnormal [address] [place] [address] [phone] Quantity > 100,000 CFU/mL 28 Urine Culture URETHRAL GÓMEZ Quantity < 10,000 CFU/mL LDL Cholesterol 10/11/2017 [facility] Cholesterol 236 mg/dL High <200 29, [address] [place] [address] [phone] Triglycerides 149 mg/dL <150 31 HDL Cholesterol 42 mg/dL >40 32 LDL-Cholesterol 164 mg/dL < 100 33 Glycohemoglobin A1c 10/11/2017 [facility] Glycohemoglobin 6.1 % N 4.2-6.[address] (A1c) [place] [address] [phone] eAG 128 mg/dL Laboratory 10/11/2017 [facility] Vitamin 29.2 Low 30.0-100.0 35 test finding [address] D,25-Hydroxy ng/[place] [address] [phone] CBS 10/11/2017 [facility] White Blood 9.1 K/uL N 3.1-10.7 W/Automated [address] [place] [place] [address] [phone] Red Blood Count 4.63 M/uL N 3.90-5.40 [...] 40.4-72.8 Lymph % 34.5 % N 20.0-42.0 [place] % 6.1 % N 4.3-13.2 Eo% 3.4 % N 0.0-6.6 Bas% 0.4 % N 0.0-1.1 Neut# 5.03 K/uL N 1.8-7.0 Lymph # 3.12 K/uL N 1.0-4.0 [place] # 0.55 K/uL N 0.3-0.9 Eos # 0.31 K/uL N 0.0-0.5 Baso # 0.04 K/uL N 0.0-0.1 Comprehensive Metabolic 10/11/2017 [facility] Glucose 106 mg/dL N 74-106 Panel [address] [place] [address] [phone] BUN 22 mg/dL High 7-18 Creatinine 1.0 mg/dL N 0.6-1.3 Glom Filtration Rate, Estimate 60 mL/min >60 If >60 mL/min >60 36 BUN/Creat 22.0 ratio Sodium 141 mmol/L N [...] 12-78 Alkaline Phosphatase 80 U/L N 45-117 Ua RFX Micro & Culture 10/08/2017 [facility] Urine Color YELLOW Yellow [address] [place] [address] [phone] Urine Clarity CLEAR Clear Urine Glucose - Dipstick NEGATIVE mg/dL Negative Urine Bilirubin - Dipstick NEGATIVE Negative Urine Ketone NEGATIVE mg/dL Negative Urine Specific [place] 1.020 N 1.010-1.030 Urine Blood MODERATE Abnormal [...] Urine Bacteria FEW None Seen Protein/Creatinine 10/08/2017 [facility] Creatinine,Urine 128.9 Not Ratio,Urine [address] mg/[place] [address] [phone] Protein,Total,Urine 78.4 mg/dL Not Estab. Protein/Creatinine Ratio 608 MG/GCRE High 0-200 38 Urine Culture 10/08/2017 [facility] Urine ESCHERICHIA COLI Abnormal [address] [place] [address] [phone] Quantity > 100,000 CFU/mL 40 Urine Culture MIXED URETHRAL F <SEE NOTE> 41 Quantity 10,000 - 50,000 <SEE NOTE> 42 Escherichia Coli 10/08/2017 [facility] Nitrofurantoin <=[address] [place] [address] [phone] Trimethoprim/Sulfamethoxazole <=20 S Ampicillin 4 S Cefazolin [...] Ua Blood 2+ High Negative Ua Specific [place] 1.020 1.010-1.030 Ua Ketones - Negative Ua Bilirubin - Negative Ua Glucose - Negative 1 B37.3 2 Method: BD Affirm VPIII DNA Probe Assay 3 GRAM STAIN INDICATES NORMAL GENITAL GÓMEZ 4 FEW GRAM POSITIVE COCCI 5 RARE WHITE BLOOD CELLS 6 I10 7 INFCE Result Units: mg/g creat Performed at: RN - [facility] [address] [id number] [employer] Production Specialist: Maia Todd MD, Phone: [phone] [id number] 10 Because ethnic data is not always readily [...] 15-29 5 Kidney failure <15 (or dialysis) 11 E78.2 12 Vitamin D deficiency has been defined by the [place] [employer] and an Endocrine Society practice guideline as a level of serum 25-OH vitamin D less than 20 ng/mL (1,2). The Endocrine Society went on to further define vitamin D insufficiency as a level between 21 and 29 ng/mL (2). 1. IOM ([place] [employer]). 2010. Dietary reference intakes for calcium and D. [place]: The National Academies Press. 2. Anatoliy MF, Ivanna NC, Mariluz MACKENZIE, et al. Evaluation, treatment, and prevention of vitamin D deficiency: an Endocrine Society clinical practice guideline. JCEM. 2010; 96(7):1911-30. Performed at: RN - [facility] [address] [id number] [employer] Production Specialist: Maia Todd MD, Phone: [phone] 13 Reference Guidelines*: Desirable: ........... < 200 mg/dL Borderline High: ..... 200-239 mg/dL High: ................ >=240 mg/dL * The National Cholesterol Education Program (NCEP) 14 Reference Guidelines*: Normal: ............. < 150 mg/dL Borderline High: .... 150-199 mg/dL High: ............... 200-499 mg/dL Very High: .......... > 500 mg/dL * Source: National Cholesterol Education Program (NCEP) 15 Reference Guidelines*: Low HDL: ..... < 40 mg/dL Normal: ..... 40-60 mg/dL Desirable: ... > 60 mg/dL *The National Cholesterol Education Program(NCEP) 16 Reference Guidelines*: Optimal:........... <100 mg/dL Near Optimal....... 100-129 mg/dL Borderline High.... 130-159 mg/dL High............... 160-189 mg/dL Very High.......... >=190 mg/dL * Source: National Cholesterol Education Program (NCEP) 17 Elevated levels of HbA1c suggest the need for more aggressive treatment of glycemia. The [place] [employer] recommends that a primary goal of therapy should be a HbA1c of <7% and that physicians should re-evaluate the treatment regimen in patients with HbA1c values consistently >8%. 18 Note: Persistent reduction for 3 months or more in an eGFR <60 mL/min/1.73 m2 defines CKD. Patients with eGFR values >/=60 mL/min/1.73 m2 may also have CKD if evidence of persistent proteinuria is present. The original MDRD equation for estimated GFR is not valid for patients less than 18 years of age. Additional information may be found at www.kdoqi.org. 19 R82.99,R82.99 20 ESCHERICHIA COLI 21 50,000 - 100,000 CFU/mL 22 MIXED URETHRAL GÓMEZ 23 10,000 - 50,000 CFU/mL 24 INFCE Result Units: mg/g creat Performed at: RN - [facility] [address] [id number] [employer] Production Specialist: Maia Todd MD, Phone: [phone] 25 URINE, CLEAN CATCH 26 Hard copy of report to be sent by mail Report may be viewed in Clinical Review, or in PCI under Medical Record Forms 27 ESCHERICHIA COLI 28 > 100,000 CFU/mL 29 Z00.00 E66.09 E55.9 30 Reference Guidelines*: Desirable: ........... < 200 mg/dL Borderline High: ..... 200-239 mg/dL High: ................ >=240 mg/dL * The National Cholesterol Education Program (NCEP) 31 Reference Guidelines*: Normal: ............. < 150 mg/dL Borderline High: .... 150-199 mg/dL High: ............... 200-499 mg/dL Very High: .......... > 500 mg/dL * Source: National Cholesterol Education Program (NCEP) 32 Reference Guidelines*: Low HDL: ..... < 40 mg/dL Normal: ..... 40-60 mg/dL Desirable: ... > 60 mg/dL *The National Cholesterol Education Program(NCEP) 33 Reference Guidelines*: Optimal:........... <100 mg/dL Near Optimal....... 100-129 mg/dL Borderline High.... 130-159 mg/dL High............... 160-189 mg/dL Very High.......... >=190 mg/dL * Source: National Cholesterol Education Program (NCEP) 34 Elevated levels of HbA1c suggest the need for more aggressive treatment of glycemia. The [place] [employer] recommends that a primary goal of therapy should be a HbA1c of <7% and that physicians should re-evaluate the treatment regimen in patients with HbA1c values consistently >8%. 35 Vitamin D deficiency has been defined by the [place] [employer] and an Endocrine Society practice guideline as a level of serum 25-OH vitamin D less than 20 ng/mL (1,2). The Endocrine Society went on to further define vitamin D insufficiency as a level between 21 and 29 ng/mL (2). 1. IOM ([place] [employer]). 2010. Dietary reference intakes for calcium and D. [place]: The National Academies Press. 2. Anatoliy TROY, Ivanna EMERSON, Mariluz MACKENZIE, et al. Evaluation, treatment, and prevention of vitamin D deficiency: an Endocrine Society clinical practice guideline. JCEM. 2010; 96(7):1911-30. Performed at: RN - [facility] [address] [id number] [employer] Production Specialist: Maia Todd MD, Phone: [phone] 36 Note: Persistent reduction for 3 months or more in an eGFR <60 mL/min/1.73 m2 defines CKD. Patients with eGFR values >/=60 mL/min/1.73 m2 may also have CKD if evidence of persistent proteinuria is present. The original MDRD equation for estimated GFR is not valid for patients less than 18 years of age. Additional information may be found at www.kdoqi.org. 37 R82.99 38 INFCE Result Units: mg/g creat Performed at: RN - [facility] [address] [id number] [employer] Specialist: Maia Todd MD, Phone: [phone] 39 ESCHERICHIA COLI 40 > 100,000 CFU/mL 41 MIXED URETHRAL GÓMEZ 42 10,000 - 50,000 CFU/mL Procedures Date Code Description Status 10/30/2017 [id number] Bone Mineral Density Test Completed 02/18/2017 [id number] Colonoscopy Completed 05/29/2012 17998 ECHO [employer] Performance Continuous Completed Electrocardio 06/25/2008 41126 Stress Test Interpre And Report Only Completed 06/25/2008 55350 Stress Test Physician Super Only Completed 06/10/2008 29307 Stress Test Interpre And Report Only Completed 06/10/2008 25404 Stress Test Physician Super Only Completed 05/01/2007 39240 Doppler ECHO Color Flow Mapping Completed 05/01/2007 82014 Doppler Echocardiogram Complete Completed 05/01/2007 31469 Echocariogram 2D Complete Completed 05/01/2007 64887 Stress Test Interpre And Report Only Completed 05/01/2007 84116 Stress Test Physician Super Only Completed Encounters Type Date Location Provider Dx Diagnosis Office Visit 03/31/2018 Primary Care Gloria Collier, L40.8 Other psoriasis 2:30p Office MS, EVISCERATOR-C, CNM M06.9 Rheumatoid arthritis, unspecified K76.0 Fatty (change of) liver, not elsewhere classified R21 Rash and other nonspecific skin eruption B37.3 Candidiasis of vulva and vagina Office Visit 03/17/2018 8:30a Primary Care Gloria Collier, L95.9 Vasculitis Office MS, EVISCERATOR-C, CNM limited to the skin, unspecified B37.2 Candidiasis of skin and nail B37.3 Candidiasis of vulva and vagina I10 Essential (primary) hypertension Office Visit 2018 1:00p Primary Care Gloria Collier, L95.9 Vasculitis Office MS, EVISCERATOR-C, CNM limited to the skin, unspecified I10 Essential (primary) hypertension Office Visit 01/27/2018 8:30a Primary Care Gloria Collier, M79.671 Pain in Office MS, EVISCERATOR-C, CNM right foot I10 Essential (primary) hypertension L40.8 Other psoriasis N18.3 Chronic kidney disease, stage 3 (moderate) E55.9 Vitamin D deficiency, unspecified Z87.440 Personal history of urinary (tract) infections E78.2 Mixed hyperlipidemia R73.9 Hyperglycemia, unspecified Office Visit 11/29/2017 3:30p Primary Care Amira Z87.440 Personal history Office MS Gloria, of urinary EVISCERATOR-C, CNM (tract) infections I10 Essential (primary) hypertension E66.9 Obesity, unspecified L40.0 Psoriasis vulgaris Office Visit 11/15/2017 8:30a Primary Care Gloria Collier, R82.99 Other abnormal Office MS, EVISCERATOR-C, CNM findings in urine J30.9 Allergic rhinitis, unspecified I10 Essential (primary) hypertension H65.193 Other acute nonsuppurative otitis media, bilateral E55.9 Vitamin D deficiency, unspecified L40.0 Psoriasis vulgaris Z71.3 Dietary counseling and surveillance Office Visit 10/30/2017 11:00a Primary Care Gloria Collier, Z01.419 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 for applications 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 Office MS, EVISCERATOR-C, CNM exam (general) (routine) w/o abn findings I10 Essential (primary) hypertension R82.99 Other abnormal findings in urine E55.9 Vitamin D deficiency, unspecified E78.2 Mixed hyperlipidemia E66.9 Obesity, unspecified N94.10 Unspecified dyspareunia Z71.3 Dietary counseling and surveillance Office Visit 10/08/2017 8:40a Primary Care Rebecca Braga, Z00.00 Encntr for Office MD general adult medical exam w/o abnormal findings E66.09 Other obesity due to excess calories L40.0 Psoriasis vulgaris I10 Essential (primary) hypertension R82.99 Other abnormal findings in urine Plan of Treatment Future Appointment(s):07/03/2018 3:00 pm - Rebecca Braga MD at [facility] Eappic5303/31/2018 - Gloria Collier, MS, EVISCERATOR-C, CNML40.8 Other mywkoncoeA28.9 Rheumatoid arthritis, unspecifiedComments:-- Patient advised to F/u with chronometer tester for treatment plan. If she is unsatisfied , we can refer her to another kqpvanscsygjpbL00.0 Fatty (change of) liver, not elsewhere classifiedNew Labs:CBC W/Automated Diff, Scheduled: 06/27/18Comprehensive Metabolic Panel, Scheduled: 06/27/18LDL Cholesterol Profile, Scheduled: Vitamin D,25-Hydroxy, Scheduled: 06/27/18Comments:--Informational sheet given to AievwrqT55 Rash and other nonspecific skin eruptionComments:--We discussed possible etiology of rash vasculitis, symptom of autoimmune disease. -- Patient has aderm OV in a few days and will have them assess it.--She does not want a steroidal cream or caladrylat this timeB37.3 Candidiasis of vulva and vaginaComments:--ResolvedAllFollow up:--Please give copy of fatty liver info sheet to Patient --Return to office in 3 months. Please get fasting labs 1 week prior to office visit. --Has OV on with DR Braga fASTING LABS 06/27/18
--- OUTSIDE RECORDS SUMMARY | 2018-05-03 07:07 | XMS REPORT | Continuity of Care Document ---
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 Rebecca Braga MD Primary Care Physician Unavailable Payers Date Identification Numbers Payment Provider Subscriber Policy Number: [id number] [facility] Cagleelvira PayID: [id number] [address] [place] [address] Expires: 2017 Policy Number: [id number] [facility] Jolanta Anderson Makenzie PayID: [id number] [address] [address] [place] [address] Advance Directives Description No Information Available Problems Date Description Provider Status Onset: 10/08/2017 Obesity Rebecca Braga MD Active Onset: 10/08/2017 Psoriasis Rebecca Braga MD Active Onset: 10/08/2017 Essential hypertension Reebcca Braga MD Active Family History Date Family Member(s) Observation Comments Father Unknown Mother due to COPD () Mother due to Heart Disease () Social History Type Date Description Comments Sex Unknown Marital Status 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 ETOH Use Denies [...] Indications Ordering Provider Nystop 03/17 Active Powder 109006Ijt 60gm apply to B37.3 Gag t/GM groin area Amy area twice e, MS, a day FAMILY SERVICES COORDINATOR-C, CNM [facility] Clotrimazole 03/17 Active Cream 1% 28.40 Apply to B37.2 Gag 0gm inner Amy thighs e, MS, twice a FAMILY SERVICES COORDINATOR-C, day CNM Hydrochlorothiazi 01/31 Active Tablets 12.5mg 30tab 1 tab by I10 Gagen, s mouth Amy every e, MS, morning FAMILY SERVICES COORDINATOR-C, CNM Omron 7 Series 11/15 Active Device 1unit use daily I10 Gagen, Blood Pressure s as Amy Monitor directed e, MS, to monitor FAMILY SERVICES COORDINATOR-C, bp/ dx:htn CNM Losartan 10/30 Active Tablets 50mg 180ta 1 by mouth I10 Gagen, Potassium bs twice a Amy day e, MS, FAMILY SERVICES COORDINATOR-C, CNM Metoprolol 00 Active Tablets 25mg 60tab 2 by mouth Gagen, Tartrate /0000 s every day Amy e, MS, FAMILY SERVICES COORDINATOR-C, CNM Fluticasone 11/15 Hx Suspension 50mcg/Act 32gm 2 sprays J30.9 Gagen, Propionate intranasal Amy - every day e, MS, 01/27 FAMILY SERVICES COORDINATOR-C, CNM Loratadine 11/15 Hx Capsules 10mg 30cap take one J30.9 Gagen, s capsule at Amy - night for e, MS, 01/27 allergies FAMILY SERVICES COORDINATOR-C, CNM Nitrofurantoin 11/01 Hx Capsules 100mg 14cap Take one Gagen, Monohyd Macro s capsule Amy - twice a e, MS, 11/29 day FAMILY SERVICES COORDINATOR-C, CNM Losartan 10/08 Hx Tablets 50mg 30tab 1 tab by I10 Maria Luz, s mouth MD Rebecca - every day 10/30 Clobetasol 10/08 Hx Liquid 0.05% 59ml use twice L40.0 Maria Luz, daily for MD Rebecca - up to two 01/27 weeks external ear canal prn Otezla Hx Tablets 30mg TK 1 T PO Unknown /0000 bid - 01/27 Neomycin/Polymyxi Hx Suspension 3.5-40402 Shake LQ Unknown n/Hydrocortisone /0000 -1 And [...] kg/m2 BSA (Body Surface Area) 1.94 m2 [place] body weight in kilograms 56 kg O2 % BldC Oximetry 98 % ra 03/17/2018 8:38am BP Systolic Sitting Right Arm 133 mmHg BP Diastolic Sitting Right Arm 80 mmHg Body Temperature 98.4 F Heart Rate 72 /min Height 64.5 inches 5'4.50" Weight 194.00 lb BMI (Body Mass Index) 32.8 kg/m2 BSA (Body Surface Area) 1.94 m2 [place] body weight in kilograms 56 kg O2 % BldC Oximetry 100 % 2018 1:06pm BP Systolic Sitting Right Arm 176 mmHg Jn 150/85 BP Diastolic Sitting Right Arm 89 mmHg Jn 150/85 Body Temperature 98.3 F Heart Rate 72 /min Height 64.5 inches 5'4.50" Weight 205.00 lb BMI (Body Mass Index) 34.6 kg/m2 BSA (Body Surface Area) 1.99 m2 [place] body weight in kilograms 56 kg O2 % BldC Oximetry 97 % 01/27/2018 8:13am BP Systolic Sitting Right Arm 171 mmHg jn 142/86 BP Diastolic Sitting Right Arm 91 mmHg jn 142/86 Body Temperature 98.0 F Heart Rate 79 /min Respiratory Rate 16 /min Height 64.5 inches 5'4.50" Weight 206.00 lb BMI (Body Mass Index) 34.8 kg/m2 BSA (Body Surface Area) 1.99 m2 [place] body weight in kilograms 56 kg O2 % BldC Oximetry 98 % 11/29/2017 3:21pm BP Systolic Sitting Left Arm 147 mmHg BP Diastolic Sitting Left Arm 85 mmHg Body Temperature 98.3 F Heart Rate 81 /min Height 64.5 inches 5'4.50" Weight 202.00 lb BMI (Body Mass Index) 34.1 kg/m2 BSA (Body Surface Area) 1.98 m2 [place] body weight in kilograms 56 kg O2 [...] kg/m2 BSA (Body Surface Area) 1.96 m2 [place] body weight in kilograms 56 kg O2 % BldC Oximetry 98 % Results Test Date Facility Test Result H/L Range Note Affirm 03/17/2018 [facility] Trichomonas Negative [Negative] 1 Vaginitis Panel [address] [place] [address] [phone] Gardnerella vaginalis Negative [Negative] Sindhu species Negative [Negative] 2 Genital Culture W/ 03/17/2018 [facility] Gram Stain GRAM STAIN INDIC [address] Stain [address] <SEE NOTE> [place] [address] [phone] Gram Stain FEW GRAM POSITIV <SEE NOTE> [...] 1.1 1-3 Alkaline Phosphatase 79 U/L 34-104 Czgcf-2-Vxwdszdbx 0.2 g/dL Ognwi-9-Dqpdpyori 1.0 g/dL Anion Gap 10 mmol/L 2-11 Anti-Nuclear Antibody (Lab) 0.4 U Aspartate Amino Transf (Ast/Sgot) 22 U/L 13-39 BUN/Creatinine Ratio 26.6 High 8-20 Basophils (%) (Auto) 0.4 % Oiwg-4-Preonicu 1.4 g/dL High Blood Urea Nitrogen 41 [...] 12.0 10^3/ul High 3.5-10.8 Laboratory test 2018 [facility] Urine 58 mg/dL [address] Protein,Random [place], [place] [address] [phone] Protein/Creatin 2018 [facility] Creatinine,Urine 68.0 mg/dL Not ine Ratio,Urine [address] Estab[address] [place], [place] [id number] [phone] Protein,Total,Urine 57.1 mg/dL Not Estab. Protein/Creatinine Ratio 840 MG/GCRE High 0-200 7 Laboratory test 01/28/2018 [facility] Erythrocyte Sed 38 mm/Hr High 0-30 8, 9 finding [phone] Rate Laboratory 01/28/2018 N2N/CCD Import Absolute 0 [...] 9.7 10^3/ul 3.5-10.8 CBC Auto Diff 01/28/2018 [facility] White Blood 9.7 10^3/uL N 3.5-10.8 [phone] Count Red Blood Count 4.30 10^6/uL N [...] Cells % 0.1 Comp Metabolic Panel 01/28/2018 [facility] Sodium 140 mmol/L N 135-145 [phone] Potassium 3.9 mmol/L N 3.5-5.0 Chloride 107 [...] >60 Egfr 70.4 >60 10 Laboratory 01/14/2018 [facility] Vitamin 58.5 30.0-100.0 11, test finding [address] D,25-Hydroxy ng/mL 12 [place] [address] [phone] LDL 01/14/2018 [facility] Cholesterol 211 High <200 [address] mg/[place] [address] [phone] Triglycerides 142 mg/dL <150 14 HDL Cholesterol 41 mg/dL >40 15 LDL-Cholesterol 142 mg/dL < 100 16 Glycohemoglobin A1c 01/14/2018 [facility] Glycohemoglobin 6.2 % N 4.2-6.[address] (A1c) [place] [address] [phone] eAG 131 mg/dL Comprehensive Metabolic 01/14/2018 [facility] Glucose 99 mg/dL N 74-106 Panel [address] [place] [address] [phone] BUN 16 mg/dL N 7-18 Creatinine 1.1 [...] Ua Blood Positive (3+) Negative Ua Specific [place] 1.030 1.010-1.030 Ua Ketones Negative Negative Ua Bilirubin Negative Negative Ua Glucose Negative Negative Escherichia Coli 11/15/2017 [facility] Nitrofurantoin 32 S 19 [address] [place] [address] [phone] Trimethoprim/Sulfamethoxazole <=20 S Ampicillin <=2 S Cefazolin <=4 S Ampicillin/Sulbactam <=2 S Ciprofloxacin <=0.25 S Piperacillin/Tazobactam <=4 S Ceftazidime <=1 S Ceftriaxone <=1 S Cefepime <=1 S Levofloxacin <=0.12 S Imipenem <=0.25 S Gentamicin <=1 S Tobramycin <=1 S Urine Culture 11/15/2017 [facility] Urine ESCHERICHIA COLI Abnormal [address] [place] [address] [phone] Quantity 50,000 - 100,000 <SEE NOTE> 21 Urine Culture MIXED URETHRAL F <SEE NOTE> 22 Quantity 10,000 - 50,000 <SEE NOTE> 23 Protein/Creatinine 11/15/2017 [facility] Creatinine,Urine 188.1 Not Ratio,Urine [address] mg/dL Estab. [place], [place] [address] [phone] Protein,Total,Urine 72.6 mg/dL Not Estab. Protein/Creatinine Ratio 386 MG/GCRE High 0-200 24 Ua RFX Micro & Culture 11/15/2017 [facility] Urine Color YELLOW Yellow II [address] [place] [address] [phone] Urine Clarity TURBID Clear Urine Glucose - Dipstick NEGATIVE mg/dL Negative Urine Bilirubin - Dipstick NEGATIVE Negative Urine Ketone NEGATIVE mg/dL Negative Urine Specific [place] 1.025 N 1.010-1.030 Urine Blood LARGE Abnormal [...] Ua Blood 3 High Negative Ua Specific [place] 1.030 1.010-1.030 Ua Ketones trace Negative Ua Bilirubin - Negative Ua Glucose - Negative HPV High Risk - Alt 10/30/2017 [facility] HPV High Risk Results on 26 [address] [place] [address] [phone] Escherichia Coli 10/30/2017 [facility] Nitrofurantoin <=16 S [address] [place] [address] [phone] Trimethoprim/Sulfamethoxazole <=20 S Ampicillin 4 S Cefazolin <=4 S Ampicillin/Sulbactam <=2 S Ciprofloxacin <=0.25 S Piperacillin/Tazobactam <=4 S Ceftazidime <=1 S Ceftriaxone <=1 S Cefepime <=1 S Levofloxacin <=0.12 S Imipenem <=0.25 S Gentamicin <=1 S Tobramycin <=1 S Urine Culture 10/30/2017 [facility] Urine ESCHERICHIA COLI Abnormal [address] [place] [address] [phone] Quantity > 100,000 CFU/mL 28 Urine Culture URETHRAL GÓMEZ Quantity < 10,000 CFU/mL LDL Cholesterol 10/11/2017 [facility] Cholesterol 236 mg/dL High <200 29, [address] [place] [address] [phone] Triglycerides 149 mg/dL <150 31 HDL Cholesterol 42 mg/dL >40 32 LDL-Cholesterol 164 mg/dL < 100 33 Glycohemoglobin A1c 10/11/2017 [facility] Glycohemoglobin 6.1 % N 4.2-6.[address] (A1c) [place] [address] [phone] eAG 128 mg/dL Laboratory 10/11/2017 [facility] Vitamin 29.2 Low 30.0-100.0 35 test finding [address] D,25-Hydroxy ng/[place] [address] [phone] CBS 10/11/2017 [facility] White Blood 9.1 K/uL N 3.1-10.7 W/Automated [address] [place] [address] [phone] Red Blood Count 4.63 M/uL N 3.90-5.40 [...] 40.4-72.8 Lymph % 34.5 % N 20.0-42.0 [place] % 6.1 % N 4.3-13.2 Eo% 3.4 % N 0.0-6.6 Bas% 0.4 % N 0.0-1.1 Neut# 5.03 K/uL N 1.8-7.0 Lymph # 3.12 K/uL N 1.0-4.0 [place] # 0.55 K/uL N 0.3-0.9 Eos # 0.31 K/uL N 0.0-0.5 Baso # 0.04 K/uL N 0.0-0.1 Comprehensive Metabolic 10/11/2017 [facility] Glucose 106 mg/dL N 74-106 Panel [address] [place] [address] [phone] BUN 22 mg/dL High 7-18 Creatinine 1.0 [...] 45-117 Ua RFX Micro & Culture 10/08/2017 [facility] Urine Color YELLOW Yellow [address] [place] [address] [phone] Urine Clarity CLEAR Clear Urine Glucose - Dipstick NEGATIVE mg/dL Negative Urine Bilirubin - Dipstick NEGATIVE Negative Urine Ketone NEGATIVE mg/dL Negative Urine Specific [place] 1.020 N 1.010-1.030 Urine Blood MODERATE Abnormal [...] Urine Bacteria FEW None Seen Protein/Creatinine 10/08/2017 [facility] Creatinine,Urine 128.9 Not Ratio,Urine [address] mg/[place] [address] [phone] Protein,Total,Urine 78.4 mg/dL Not Estab. Protein/Creatinine Ratio 608 MG/GCRE High 0-200 38 Urine Culture 10/08/2017 [facility] Urine ESCHERICHIA COLI Abnormal [address] [place] [address] [phone] Quantity > 100,000 CFU/mL 40 Urine Culture MIXED URETHRAL F <SEE NOTE> 41 Quantity 10,000 - 50,000 <SEE NOTE> 42 Escherichia Coli 10/08/2017 [facility] Nitrofurantoin <=[address] [place] [address] [phone] Trimethoprim/Sulfamethoxazole <=20 S Ampicillin 4 S Cefazolin [...] Ua Blood 2+ High Negative Ua Specific [place] 1.020 1.010-1.030 Ua Ketones - Negative Ua Bilirubin - Negative Ua Glucose - Negative 1 B37.3 2 Method: BD Affirm VPIII DNA Probe Assay 3 GRAM STAIN INDICATES NORMAL GENITAL GÓMEZ 4 FEW GRAM POSITIVE COCCI 5 RARE WHITE BLOOD CELLS 6 I10 7 INFCE Result Units: mg/g creat Performed at: RN - [facility] [address] [id number] Wic Site Coordinator: Maia Todd MD, Phone: [phone] [id number] Because ethnic data is not always [...] D deficiency has been defined by the [place] of [employer] and an Endocrine Society practice guideline as a level of serum 25-OH vitamin D less than 20 ng/mL (1,2). The Endocrine Society went on to further define vitamin D insufficiency as a level between 21 and 29 ng/mL (2). 1. IOM ([place] of [employer]). 2010. Dietary reference intakes for calcium and D. [place]: The National Academies Press. 2. Anatoliy MF, Ivanna NC, Mariluz MACKENZIE, et al. Evaluation, treatment, and prevention of vitamin D deficiency: an Endocrine Society clinical practice guideline. JCEM. 2010; 96(7):1911-30. Performed at: RN - [facility] [address] [id number] Wic Site Coordinator: Maia Todd MD, Phone: [phone] Reference Guidelines*: Desirable: ........... < 200 [...] for more aggressive treatment of glycemia. The [place] Diabetes Association recommends that a primary goal [...] mg/g creat Performed at: RN - [facility] [address] [id number] Wic Site Coordinator: Maia Todd MD, Phone: [phone] URINE, CLEAN CATCH 26 Hard copy [...] for more aggressive treatment of glycemia. The [place] Diabetes Association recommends that a primary goal of therapy should be a HbA1c of <7% and that physicians should re-evaluate the treatment regimen in patients with HbA1c values consistently >8%. 35 Vitamin D deficiency has been defined by the [place] [employer] and an Endocrine Society practice guideline as a level of serum 25-OH vitamin D less than 20 ng/mL (1,2). The Endocrine Society went on to further define vitamin D insufficiency as a level between 21 and 29 ng/mL (2). 1. IOM ([place] of [employer]). 2010. Dietary reference intakes for calcium and D. [place]: The National Academies Press. 2. Anatoliy TROY, Ivanna EMERSON, Mariluz MACKENZIE, et al. Evaluation, treatment, and prevention of vitamin D deficiency: an Endocrine Society clinical practice guideline. JCEM. 2010; 96(7):1911-30. Performed at: RN - [facility] [address] [id number] Wic Site Coordinator: Maia Todd MD, Phone: [phone] Note: Persistent reduction for 3 months [...] mg/g creat Performed at: RN - [facility] [address] [id number] Wic Site Coordinator: Maia Todd MD, Phone: [phone] ESCHERICHIA COLI 40 > 100,000 CFU/mL 41 MIXED URETHRAL GÓMEZ 42 10,000 - 50,000 CFU/mL Procedures Date Code Description Status 10/30/2017 744116980 Bone Mineral Density Test Completed 02/18/2017 08397265 Colonoscopy Completed 05/29/2012 48059 ECHO [employer]an[employer] Performance Continuous Completed Electrocardio 06/25/2008 82530 Stress Test Interpre And Report Only Completed 06/25/2008 44845 Stress Test Physician Super Only Completed 06/10/2008 85757 Stress Test Interpre And Report Only Completed 06/10/2008 98794 Stress Test Physician Super Only Completed 05/01/2007 21393 Doppler ECHO Color Flow Mapping Completed 05/01/2007 44302 Doppler Echocardiogram Complete Completed 05/01/2007 63810 Echocariogram 2D Complete Completed 05/01/2007 08330 Stress Test Interpre And Report Only Completed 05/01/2007 78809 Stress Test Physician Super Only Completed Encounters Type Date Location Provider Dx Diagnosis Office Visit 03/31/2018 [facility] Gloria Collier, L40.8 Other psoriasis 2:30p Office MS, FAMILY SERVICES COORDINATOR-C, CNM M06.9 Rheumatoid arthritis, unspecified K76.0 Fatty (change of) liver, not elsewhere classified R21 Rash and other nonspecific skin eruption B37.3 Candidiasis of vulva and vagina Office Visit 03/17/2018 8:30a [facility] Gloria Collier, L95.9 Vasculitis Office MS, FAMILY SERVICES COORDINATOR-C, CNM limited to the skin, unspecified B37.2 Candidiasis of skin and nail B37.3 Candidiasis of vulva and vagina I10 Essential (primary) hypertension Office Visit 2018 1:00p [facility] Gloria Collier, L95.9 Vasculitis Office MS, FAMILY SERVICES COORDINATOR-C, CNM limited to the skin, unspecified I10 Essential (primary) hypertension Office Visit 01/27/2018 8:30a [facility] Gloria Collier, M79.671 Pain in Office MS, FAMILY SERVICES COORDINATOR-C, CNM right foot I10 Essential (primary) hypertension L40.8 Other psoriasis N18.3 Chronic kidney disease, stage 3 (moderate) E55.9 Vitamin D deficiency, unspecified Z87.440 Personal history of urinary (tract) infections E78.2 Mixed hyperlipidemia R73.9 Hyperglycemia, unspecified Office Visit 11/29/2017 3:30p [facility] Amira Z87.440 Personal history Office MS Gloria, of urinary FAMILY SERVICES COORDINATOR-C, CNM (tract) infections I10 Essential (primary) hypertension E66.9 Obesity, unspecified L40.0 Psoriasis vulgaris Office Visit 11/15/2017 8:30a [facility] Gloria Collier, R82.99 Other abnormal Office MS, FAMILY SERVICES COORDINATOR-C, CNM findings in urine J30.9 Allergic rhinitis, unspecified I10 Essential (primary) hypertension H65.193 Other acute nonsuppurative otitis media, bilateral E55.9 Vitamin D deficiency, unspecified L40.0 Psoriasis vulgaris Z71.3 Dietary counseling and surveillance Office Visit 10/30/2017 11:00a [facility] Gloria Collier, Z01.419 Encntr for traffic enumerator Office MS, FAMILY SERVICES COORDINATOR-C, CNM exam (general) (routine) w/o abn findings [...] - Rebecca Braga MD at Primary Care Kknwvj1703/31/2018 - Gloria Collier, MS, FAMILY SERVICES COORDINATOR-C, CNML40.8 Other vnagpxwbhO99.9 Rheumatoid arthritis, unspecifiedComments:-- Patient advised to F/u with wash operator for treatment plan. If she is unsatisfied , we can refer her to another jhqtibdnzmayjcB93.0 Fatty (change of) liver, not elsewhere classifiedNew Labs:CBC W/Automated Diff, Scheduled: 06/27/18Comprehensive Metabolic Panel, Scheduled: 06/27/18LDL Cholesterol Profile, Scheduled: Vitamin D,25-Hydroxy, Scheduled: 06/27/18Comments:--Informational sheet given to XxwyjqvV87 Rash and other nonspecific skin eruptionComments:--We discussed [...]
[2018-05-03 07:11] VITALS: BP 164/88
[2018-05-03] MEDS ORDERED: Clindamycin CAP* 150 MG PO ONE (07:22)
--- NOTE | 2018-05-03 07:23 | UC ---
Dental HPI - HPI Summary HPI Summary: The patient is a 63-year-old female with progressively worsening right lower jaw pain and swelling times about a day. She denies any fever or chills. She states that she does not have any tooth pain. SHe has no headache or myalgias. - History of Current Complaint Chief Complaint: UCDentalProblem Stated Complaint: ORAL COMPLAINT Time Seen by Provider: 05/03/18 07:17 Hx Obtained From: Patient Hx Last Menstrual Period: 1994 Onset/Duration: Gradual Onset Severity: Moderate Pain Intensity: 7 Pain Scale Used: 0-10 Numeric Aggravating Factor(s): Chewing Alleviating Factor(s): Nothing Related History: Swelling - Allergies/Home Medications Allergies/Adverse Reactions: Allergies Allergy/AdvReac Type Severity Reaction Status Date / Time meperidine [From Demerol] Allergy Severe Anaphylatic Verified 05/03/18 07:08 Shock Sulfa (Sulfonamide Allergy Severe Leg pain Verified 05/03/18 07:08 Antibiotics) Penicillins Allergy Intermediate Rash, Verified 05/03/18 07:08 sweating, N/V, diarrhea phenytoin [From Dilantin] Allergy Intermediate ucontrollable Verified 05/03/18 07:08 shaking epinephrine AdvReac Intermediate severe Verified 05/03/18 07:08 uncontrollable shaking Iodinated Contrast- Oral and AdvReac Intermediate kidney Verified 05/03/18 07:08 IV Dye problems soy AdvReac Intermediate Sinus, Verified 05/03/18 07:08 runny eyes codeine AdvReac hyperactivi Verified 05/03/18 07:08 ty red dye AdvReac problems Verified 05/03/18 07:08 with kidneys, skin problems chocolate Allergy Intermediate psoriasis Uncoded 05/03/18 07:08 GLUTEN Allergy PSORIASIS, Uncoded 05/03/18 07:08 DIARRHEA MILK Allergy PSORIASIS Uncoded 05/03/18 07:08 PMH/Surg Hx/FS Hx/Imm Hx Previously Healthy: Yes Cardiovascular History: Hypertension Neurological History: Seizures - Surgical History Surgical History: Yes Surgery Procedure, Year, and Place: APPENDECTOMY- AGE 4. HYSTERECTOMY-10/1994- [place]. GANGLION cyst X 2. COLONOSCOPY - Family History Known Family History: Positive: Cardiac Disease, Hypertension, Non-Contributory Family History: no known cardio-vascular issues in family lineage - Social History Alcohol Use: None Alcohol Amount: 4 OZ WINE/DAY Substance Use Type: None Smoking Status (MU): Former Smoker When Did the Patient Quit Smoking/Using Tobacco: 1987 - Immunization History Most Recent Influenza Vaccination: NEVER Most Recent Tetanus Shot: UTD ~2013 Most Recent Pneumonia Vaccination: NEVER Review of Systems All Other Systems Reviewed And Are Negative: Yes Constitutional: Positive: Negative Skin: Positive: Negative Eyes: Positive: Negative ENT: Positive: Negative Respiratory: Positive: Negative Cardiovascular: Positive: Negative Gastrointestinal: Positive: Negative Genitourinary: Positive: Negative Motor: Positive: Negative Neurovascular: Positive: Negative Musculoskeletal: Positive: Negative Neurological: Positive: Negative Psychological: Positive: Negative Physical Exam Triage Information Reviewed: Yes Appearance: Well-Appearing, No Pain Distress, Well-Nourished Vital Signs: Initial Vital Signs Temp 98.3 F 05/03/18 07:06 Pulse 75 05/03/18 07:06 Resp 20 05/03/18 07:06 BP 164/88 05/03/18 07:06 Pulse Ox 100 05/03/18 07:06 Vital Signs Reviewed: Yes Eyes: Positive: Conjunctiva Clear ENT: Positive: Hearing grossly normal. Negative: Nasal congestion, Nasal drainage Dental: Positive: Other: - see image Neck: Positive: Supple, Nontender, No Lymphadenopathy Respiratory: Positive: Lungs clear, Normal breath sounds, No respiratory distress, No accessory muscle use Cardiovascular: Positive: RRR, No Murmur Bowel Sounds: Positive: Present Musculoskeletal: Positive: ROM Intact, No Edema Neurological: Positive: Alert Psychological Exam: Normal Skin Exam: Normal Images Head: 1 - swollen/tender Dental: 1 - diffuse swelling/unable to visualize a descrete abscess Dental Complaint Course/Dx - Differential Dx/Diagnosis Provider Diagnosis: Dental abscess Discharge - Sign-Out/Discharge Documenting (check all that apply): Patient Departure - febrile All imaging exams completed and their final reports reviewed: No Studies - Discharge Plan Condition: Stable Disposition: HOME Prescriptions: Clindamycin Cap(NF) [Clindamycin Cap 300 mg Cap(NF)] 300 mg PO QID #28 cap Patient Education Materials: Dental Abscess (ED) Referrals: Rebecca Braga MD [Primary Care Provider] - Additional Instructions: warm compresses TO ER if symptoms worsen Try to get in to see dentist Saturday - Billing Disposition and Condition Condition: STABLE Disposition: Home
== END 2018-05-03 07:37 | disposition home or self-care (01) ==
LOC: UCCORT 07:01
DX: K04.7 Periapical abscess without sinus (principal); I10 Essential (primary) hypertension; Z88.8 Allergy status to other drugs, medicaments and biological substances; Z88.2 Allergy status to sulfonamides; Z88.0 Allergy status to penicillin; Z91.018 Allergy to other foods; Z91.09 Other allergy status, other than to drugs and biological substances; Z88.5 Allergy status to narcotic agent; Z91.041 Radiographic dye allergy status; Z91.011 Allergy to milk products; Z87.891 Personal history of nicotine dependence
CPT/HCPCS: 99212; A9270-GY; G0463

== ENCOUNTER 2018-06-07 07:02 | Emergency (ER) | payer BC ==
[2018-06-07 07:16] VITALS: BP 153/85
--- NOTE | 2018-06-07 07:28 | UC ---
Dental HPI - HPI Summary HPI Summary: The patient is a 63-year-old female that awoke this morning with swelling of her right jaw line. She states she has bad teeth and noticed bubble by her gums. She states she plans to take a trip to [facility] to have all her teeth removed and implants put in. She denies any fever or chills. She is not a diabetic. Her discomfort is mild. She has no nausea vomiting or diarrhea. She denies any chest pain or shortness of breath. - History of Current Complaint Chief Complaint: UCGeneralIllness Stated Complaint: FACIAL SWELLING Time Seen by Provider: 06/07/18 07:20 Hx Obtained From: Patient Hx Last Menstrual Period: 1994 Onset/Duration: Gradual Onset, Lasting Hours Severity: Mild Pain Intensity: 1 Pain Scale Used: 0-10 Numeric Aggravating Factor(s): Other - touch Alleviating Factor(s): Nothing Related History: Swelling Dental: 1 - swollen - Allergies/Home Medications Allergies/Adverse Reactions: Allergies Allergy/AdvReac Type Severity Reaction Status Date / Time meperidine [From Demerol] Allergy Severe Anaphylatic Verified 06/07/18 07:11 Shock Sulfa (Sulfonamide Allergy Severe Leg pain Verified 06/07/18 07:11 Antibiotics) Penicillins Allergy Intermediate Rash, Verified 06/07/18 07:11 sweating, N/V, diarrhea phenytoin [From Dilantin] Allergy Intermediate ucontrollable Verified 06/07/18 07:11 shaking epinephrine AdvReac Intermediate severe Verified 06/07/18 07:11 uncontrollable shaking Iodinated Contrast- Oral and AdvReac Intermediate kidney Verified 06/07/18 07:11 IV Dye problems soy AdvReac Intermediate Sinus, Verified 06/07/18 07:11 runny eyes codeine AdvReac hyperactivi Verified 06/07/18 07:11 ty red dye AdvReac problems Verified 06/07/18 07:11 with kidneys, skin problems GLUTEN Allergy PSORIASIS, Uncoded 06/07/18 07:11 DIARRHEA MILK Allergy PSORIASIS Uncoded 06/07/18 07:11 PMH/Surg Hx/FS Hx/Imm Hx Previously Healthy: Yes Cardiovascular History: Hypertension - Surgical History Surgical History: Yes Surgery Procedure, Year, and Place: APPENDECTOMY- AGE 4. HYSTERECTOMY-10/1994- [place]. GANGLION cyst X 2. COLONOSCOPY - Family History Known Family History: Positive: Cardiac Disease, Hypertension, Non-Contributory Family History: no known cardio-vascular issues in family lineage - Social History Alcohol Use: None Alcohol Amount: 4 OZ WINE/DAY Substance Use Type: None Smoking Status (MU): Former Smoker When Did the Patient Quit Smoking/Using Tobacco: 1986 - Immunization History Most Recent Influenza Vaccination: NEVER Most Recent Tetanus Shot: UTD ~2013 Most Recent Pneumonia Vaccination: NEVER Review of Systems All Other Systems Reviewed And Are Negative: Yes Constitutional: Positive: Negative Skin: Positive: Negative Eyes: Positive: Negative ENT: Positive: Dental Pain Cardiovascular: Positive: Negative Gastrointestinal: Positive: Negative Genitourinary: Positive: Negative Motor: Positive: Negative Neurovascular: Positive: Negative Musculoskeletal: Positive: Negative Neurological: Positive: Negative Psychological: Positive: Negative Physical Exam Triage Information Reviewed: Yes Appearance: Well-Appearing, No Pain Distress, Well-Nourished Vital Signs: Initial Vital Signs Temp 97.5 F 06/07/18 07:12 Pulse 70 06/07/18 07:12 Resp 18 06/07/18 07:12 BP 153/85 06/07/18 07:12 Pulse Ox 99 06/07/18 07:12 Vital Signs Reviewed: Yes ENT: Positive: Hearing grossly normal. Negative: Pharyngeal erythema, Nasal congestion, Nasal drainage, Tonsillar swelling, Tonsillar exudate, Trismus, Muffled voice, Uvula midline Dental Exam: Other - see image/many absent teeth/gingivitis/abscess Neck: Positive: Supple, Nontender, No Lymphadenopathy Respiratory: Positive: Lungs clear, Normal breath sounds, No respiratory distress, No accessory muscle use Cardiovascular: Positive: RRR, No Murmur Musculoskeletal: Positive: ROM Intact, No Edema Neurological: Positive: Alert Psychological Exam: Normal Skin Exam: Normal Images Head: 1 - swollen Dental Complaint Course/Dx - Differential Dx/Diagnosis Provider Diagnosis: Dental abscess Discharge - Sign-Out/Discharge Documenting (check all that apply): Patient Departure All imaging exams completed and their final reports reviewed: No Studies - Discharge Plan Condition: Stable Disposition: HOME Prescriptions: Clindamycin Cap(NF) [Clindamycin Cap 300 mg Cap(NF)] 300 mg PO QID #28 cap Patient Education Materials: Probiotic (By mouth), Dental Abscess (ED) Referrals: Rebecca Braga MD [Primary Care Provider] - Additional Instructions: see dentist in follow up recheck in 48 hours if not improved heat - Billing Disposition and Condition Condition: STABLE Disposition: Home
== END 2018-06-07 07:37 | disposition home or self-care (01) ==
LOC: UCCORT 07:02
DX: K04.7 Periapical abscess without sinus (principal); I10 Essential (primary) hypertension; Z87.891 Personal history of nicotine dependence
CPT/HCPCS: 99212; G0463

== ENCOUNTER 2018-10-18 08:03 | Emergency (ER) | payer BC ==
--- OUTSIDE RECORDS SUMMARY | 2018-10-18 08:10 | XMS REPORT | Continuity of Care Document ---
:1955 External Reference #:[id number] Author Name Karma Mcpherson MD Address [address], [address] [place] [address] Care Team Providers Name Role Phone Karma Mcpherson M.D. 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 Onset: 12/15/2013 Psoriasis Onset: 12/15/2013 Rheumatoid arthritis Onset: 12/15/2013 Essential hypertension Onset: 12/15/2013 Acute poliomyelitis Onset: 12/15/2013 Microscopic hematuria Karma Mcpherson MD Onset: 09/30/2015 Note: Per the pt,already w/o by urology Social History Type Date Description Comments Sex Unknown ETOH Use 02/21/2017 Denies alcohol use Recreational Drug Use 02/21/2017 Denies Drug Use Tobacco Use Start: Unknown End: Patient is a former smoker Smoking Status Reviewed: 02/25/17 Patient is a former smoker Exercise Type/Frequency Exercises regularly Allergies, Adverse Reactions, Alerts Active Allergies Reaction Severity Comments Date Penicillins 09/06/2015 Divalproex Sodium hallucinations 09/06/2015 Phenytoin Sodium weight loss and shaking 09/06/2015 Red Dye shuts kidneys down 09/06/2015 Epinephrine Unknown 09/06/2015 Gluten 09/06/2015 Phenytoin Sodium 09/06/2015 Sulfa Antibiotics arm & leg pain 01/06/2016 Medications Active Medications SIG Qnty Indications Ordering Date Provider Ciprofloxacin HCL 4 drops to both 5ml Karma Mcpherson, 02/27/2017 0.3% ears twice a day Solution Metoprolol Tartrate take 1 tablet by 120tabs Karma Mcpherson, 11/30/2016 mouth twice daily 25mg Tablets Nystatin apply to affected 15units Karma Mcpherson, 06/15/2016 909390Aset/GM area(s) two times Cream a day for monica infection Losartan Potassium TK 1 T PO bid Unknown 50mg Tablets Immunizations Description No Information Available Vital Signs Date Vital Result Comment 10/08/2018 7:45am Height 64 inches 5'4" Weight 204.38 lb BMI (Body Mass Index) 35.1 kg/m2 BP Systolic 148 mmHg BP Diastolic 90 mmHg Heart Rate 62 /min Body Temperature 97.7 F Body Temperature 36.5 C O2 % BldC Oximetry 97 % 02/27/2017 9:08am Height 64 inches 5'4" Weight 212.12 lb BMI (Body Mass Index) 36.4 kg/m2 BP Systolic 140 mmHg left arm lg cuff BP Diastolic 84 mmHg left arm lg cuff Heart Rate 67 /min Body Temperature 97.0 F Body Temperature 36.1 C Results Description No Information Available Procedures Description No Information Available Medical Devices Description No Information Available Encounters Description No Information Available Assessments Date Code Description Provider 10/08/2018 N18.9 Chronic kidney disease, unspecified Karma Mcpherson MD 10/08/2018 R41.3 Other amnesia Karma Mcpherson MD Plan of Treatment No Information Available Functional Status Functional Condition Comment Date Status Glasses Active Mental Status Description No Information Available Referrals Refer to Reason for Referral Status Appt Date Agustin Charles M.D. 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
--- OUTSIDE RECORDS SUMMARY | 2018-10-18 08:10 | XMS REPORT | Continuity of Care Document ---
:1955 External Reference #:[id number] Author Name Gloria Collier, MS, LIFESTYLE CONSULTANT-C, CNM Address [address] [place] [address] Care Team Providers Name Role Phone Rebecca Braga MD - Internal Medicine Care Team Information Rental Sales Associate Sumit Albright MD - Nephrology Care Team Information Rental Sales Associate [phone] Bry Cuenca M.D. - Neurology Care Team Information Rental Sales Associate [phone] Problems Active Problems Provider Date Obesity Rebecca Braga MD Onset: 10/08/2017 Psoriasis Rebecca Braga MD Onset: 10/08/2017 Essential hypertension Rebecca Braga MD Onset: 10/08/2017 Rheumatoid arthritis Rebecca Braga MD Onset: 07/03/2018 Hematuria syndrome Rebecca Braga MD Onset: 07/03/2018 Contusion of finger Winter Victor PA Onset: 07/07/2018 Social History Type Date Description Comments Sex Unknown Tobacco Use Start: Unknown End: Quit Unknown Smoking Status Reviewed: 09/25/18 Quit ETOH Use Denies alcohol use Tobacco Use Start: Unknown End: Patient is a former 30-40 years ago Unknown smoker Recreational Drug Use Denies Drug Use Allergies, Adverse Reactions, Alerts Active Allergies Reaction Severity Comments Date Penicillin anaphylaxis 10/08/2017 Benadryl off balance 10/08/2017 Gluten Psoriasis, Diarrhea 02/01/2018 Depakote anaphylaxis 10/08/2017 Dilantin anaphylaxis 10/08/2017 FD&C Red 40 Varma kidney failure 10/08/2017 Dairy 10/08/2017 Soy Germ 10/08/2017 Medications Active Medications SIG Qnty Indications Ordering Provider Date Ciprodex 4 drop in right 7.500ml H62.41 Casey Perez MD 09/04/2018 0.3-0.1% ear twice a day Suspension for 7 days Doxycycline Hyclate 1 tab by mouth 14tabs H66.91 Casey Perez MD 2018 twice a day as 100mg Tablets directed Omron 7 Series Blood use daily as 1units I10 Gagen, 11/15/2017 Pressure Monitor directed to MS Gloria, monitor bp/ LIFESTYLE CONSULTANT-C, CNDalton Device dx:htn Losartan Potassium 1 by mouth twice 180tabs I10 Gagen, 10/30/2017 a day MS Gloria, 50mg Tablets LIFESTYLE CONSULTANT-C, CHIOMA Metoprolol Tartrate Take 2 Tablets By 60tabs Rebecca Braga MD Mouth Every Day 25mg Tablets Turmeric Curcumin 1 capsules twice Unknown daily. 500mg Capsules Immunizations Description No Information Available Vital Signs Date Vital Result Comment 09/04/2018 9:15am BP Systolic 132 mmHg BP Diastolic 76 mmHg Body Temperature 98.3 F Heart Rate 83 /min Respiratory Rate 18 /min Height 64.5 inches 5'4.50" Weight 208.38 lb BMI (Body Mass Index) 35.2 kg/m2 BSA (Body Surface Area) 2.00 m2 Verner body weight in kilograms 56 kg O2 % BldC Oximetry 98 % Ra 08/29/2018 2:23pm BP Systolic Sitting Right Arm 124 mmHg BP Diastolic Sitting Right Arm 72 mmHg Body Temperature 98.0 F Heart Rate 78 /min Respiratory Rate 18 /min Height 64.5 inches 5'4.50" Weight 202.00 lb BMI (Body Mass Index) 34.1 kg/m2 BSA (Body Surface Area) 1.98 m2 Verner body weight in kilograms 56 kg O2 % BldC Oximetry 97 % ra Results Test Date Facility Test Result H/L Range Note CBC 08/25/2018 [facility] White Blood 9.4 K/uL Normal 3.1-10.7 1 W/Automated [address] Count Diff [place], [place] [id number] [phone] Red Blood Count 4.00 M/uL Normal 3.90-5.40 Hemoglobin 12.1 gm/dL Normal 11.6-15.8 Hematocrit 36.3 % Normal 36.0-46.1 Mean Cell Volume 90.8 fl Normal 80.9-99.0 Mean Corpuscular HGB 30.3 pg Normal 25.9-32.7 Mean Corpuscular HGB Conc 33.3 g/dL Normal 30.8-34.3 Platelet Count 358 K/uL Normal 155-360 Red Cell Distri Width SD 42.1 fl Normal 36-47 Red Cell Distri Width %CV 12.8 % Normal 11.7-14.4 Mean Platelet Volume 10.3 fl Normal 8.9-12.4 Neut% 58.4 % Normal 40.4-72.8 Lymph % 31.1 % Normal 20.0-42.0 [place] % 6.7 % Normal 4.3-13.2 Eo% 2.7 % Normal 0.0-6.6 Bas% 0.6 % Normal 0.0-1.1 Immature Grans 0.5 % Normal 0.0-5.0 NRBC % 0.0 /100WBC < 10/ 100 WBC Neut# 5.49 K/uL Normal 1.8-7.0 Lymph # 2.93 K/uL Normal 1.0-4.0 [place] # 0.63 K/uL Normal 0.3-0.9 Eos # 0.25 K/uL Normal 0.0-0.5 Baso # 0.06 K/uL Normal 0.0-0.1 Immature Grans Absolute 0.05 K/uL NRBC # 0.00 K/uL Comprehensive Metabolic 08/25/2018 [facility] Glucose 110 mg/dL High 74-106 Panel [address] [place] [address] [phone] BUN 28 mg/dL High 7-18 Creatinine 1.3 mg/dL Normal 0.6-1.3 Glom Filtration Rate, Estimate 44 mL/min >60 If 53 mL/min >60 2 BUN/Creat 21.5 ratio Sodium 142 mmol/L Normal 136-145 Potassium 4.0 mmol/L Normal 3.5-5.1 Chloride 109 mmol/L High 98-107 Carbon Dioxide 25 mmol/L Normal 21-32 Anion Gap 8 mEq/L Normal 8-16 Calcium 8.8 mg/dL Normal 8.5-10.1 Total Protein 8.4 g/dL High 6.4-8.2 Albumin 3.7 g/dL Normal 3.4-5.0 Globulin 4.7 g/dL High 1.9-4.3 Alb/Glob 0.8 ratio Bilirubin,Total 0.5 mg/dL Normal 0.2-1.0 Sgot/Ast 30 U/L Normal 15-37 SGPT/Alt 36 U/L Normal 12-78 Alkaline Phosphatase 83 U/L Normal 45-117 LDL Cholesterol 08/25/2018 [facility] Cholesterol 229 mg/dL High <200 [address] [place] [address] [phone] Triglycerides 119 mg/dL <150 4 HDL Cholesterol 43 mg/dL >40 5 LDL-Cholesterol 162 mg/dL < 100 6 Laboratory test 08/25/2018 [facility] Vitamin 32.7 30.0-100.[address] D,25-Hydroxy ng/[place] [address] [phone] Glycohemoglobin 08/25/2018 [facility] Glycohemoglobin 6.3 % Normal 4.2-6.[address] (A1c) [place] [address] [phone] eAG 134 mg/dL Criselda And Pe, 08/25/2018 [facility] Immunoglobulin 1316 mg/dL 700-[address] G,Quant,Serum [place], [place] [id number] [phone] Immunoglobulin A 399 mg/dL High 87-352 Immunoglobulin M 86 mg/dL 26-217 Protein,Total,Serum 7.3 g/dL 6.0-8.5 Albumin 3.8 g/dL 2.9-4.4 Feujh-3-Dukfyvcp 0.1 g/dL 0.0-0.4 Fityj-1-Hjmozlmj 0.7 g/dL 0.4-1.0 Beta Globulin 1.2 g/dL 0.7-1.3 Gamma Globulin 1.4 g/dL 0.4-1.8 M-Silvano Not Observed g/dL Not Observed Globulin, Total 3.5 g/dL 2.2-3.9 A/G Ratio 1.1 0.7-1.7 Immunofixation Result (SEE NOTE) 9 Please Note: (SEE NOTE) 10 Urine Total Prot 08/25/2018 [facility] Urine Total Protein 85.1 mg/dL Timed Profile [address] [place] [address] [phone] Urine TP Total (mg/24hr) 638 mg/24Hr High up to 150 Urine Creat 08/25/2018 [facility] Urine Collection 24 Hours Clearance Profile [address] [place] [address] [phone] Urine Total Volume 750 mL Serum Creatinine 1.3 mg/dL Normal 0.5-1.4 Urine Creatinine Conc 168 mg/dL Urine Creatinine Clearance 67 mL/min Low 70-156 Ua RFX Micro & Culture 07/03/2018 [facility] Urine Color YELLOW Yellow [address] [place] [address] [phone] Urine Clarity SL CLOUDY Clear Urine Glucose - Dipstick NEGATIVE mg/dL Negative Urine Bilirubin - Dipstick NEGATIVE Negative Urine Ketone NEGATIVE mg/dL Negative Urine Specific [place] >= 1.030 Normal 1.010-1.030 Urine Blood MODERATE Abnormal Negative Urine PH 6.0 Low 6.5-7.5 Urine Protein - Dipstick 100 mg/dL High Negative Urine Urobilinogen - Dipstick 0.2 E.U./dL Normal 0.2-1.0 Urine Nitrite - Dipstick NEGATIVE Negative Urine Leuk Esterase NEGATIVE Negative Urine RBC 20-30 rbc/hpf High 0-2 Urine WBC 10-20 wbc/hpf High 0-7 Urine Epithelial Cells FEW /lpf None Seen Urine Bacteria FEW None Seen Source: URINE, CLEAN CAT <SEE NOTE> 12 Criselda/Pe,Random Urine 07/03/2018 [facility] Albumin,U 69.6 % . [address] [place] [address] [phone] Bebxy-0-Nxcbtiuq,U 3.6 % . Bubcs-4-Ksneiohi,U 9.4 % . Beta Globulin,U 8.8 % . Gamma Globulin,U 8.6 % . M-Silvano,% Not Observed % Not Observed Immunofixation Result (SEE NOTE) 13 Note: (SEE NOTE) 14 Protein/Creatinine 07/03/2018 [facility] Creatinine,Urine 142.2 Not Ratio,Urine [address] mg/[place] [address] [phone] Protein,Total,Urine 132.8 mg/dL Not Estab. Protein/Creatinine Ratio 934 MG/GCRE High 0-200 15 Urine Culture 07/03/2018 [facility] Urine Culture URETHRAL GÓMEZ [address] [place] [address] [phone] Quantity 10,000 - 50,000 <SEE NOTE> 16 1 COMING IN SATURDAY 2 Note: Persistent reduction for 3 months or more in an eGFR <60 mL/min/1.73 m2 defines CKD. Patients with eGFR values >/=60 mL/min/1.73 m2 may also have CKD if evidence of persistent proteinuria is present. The original MDRD equation for estimated GFR is not valid for patients less than 18 years of age. Additional information may be found at www.kdoqi.org. 3 Reference Guidelines*: Desirable: ........... < 200 mg/dL Borderline High: ..... 200-239 mg/dL High: ................ >= 240 mg/dL * The National Cholesterol Education Program (NCEP) 4 Reference Guidelines*: Normal: ............. < 150 mg/dL Borderline High: .... 150-199 mg/dL High: ............... 200-499 mg/dL Very High: .......... > 500 mg/dL * Source: National Cholesterol Education Program (NCEP) 5 Reference Guidelines*: Low HDL: ..... < 40 mg/dL Normal: ..... 40-60 mg/dL Desirable: ... > 60 mg/dL *The National Cholesterol Education Program(NCEP) 6 Reference Guidelines*: Optimal:........... <100 mg/dL Near Optimal....... 100-129 mg/dL Borderline High.... 130-159 mg/dL High............... 160-189 mg/dL Very High.......... >=190 mg/dL * Source: National Cholesterol Education Program (NCEP) 7 Vitamin D deficiency has been defined by the [place] [employer] and an Endocrine Society practice guideline as a level of serum 25-OH vitamin D less than 20 ng/mL (1,2). The Endocrine Society went on to further define vitamin D insufficiency as a level between 21 and 29 ng/mL (2). 1. IOM ([place] [employer]). 2010. Dietary reference intakes for calcium and D. [place]: The National Academies Press. 2. Anatoliy MF, Ivanna EMERSON, Mariluz MACKENZIE, et al. Evaluation, treatment, and prevention of vitamin D deficiency: an Endocrine Society clinical practice guideline. JCEM. 2010; 96(7):1911-30. Performed at: [address] [id number] Face Hardener: Maia Todd MD, Phone: [phone] 8 Elevated levels of HbA1c suggest the need for more aggressive treatment of glycemia. The [place] [employer] Association recommends that a primary goal of therapy should be a HbA1c of <7% and that physicians should re-evaluate the treatment regimen in patients with HbA1c values consistently >8%. 9 An apparent polyclonal gammopathy: IgA. [place] and lambda typing appear increased. 10 Protein electrophoresis scan will follow via computer, mail, or hand box coverer delivery. Performed at: [address] [id number] Face Hardener: Maia Todd MD, Phone: [phone] 11 R80.9 N18.3 12 URINE, CLEAN CATCH 13 An apparent normal immunofixation pattern. 14 Protein electrophoresis scan will follow via computer, mail, or hand box coverer delivery. Performed at: [address] [id number] Face Hardener: Maia Todd MD, Phone: [phone] INFCE Result Units: mg/g creat 16 10,000 - 50,000 CFU/mL Procedures Date Code Description Status 07/07/2018 81769 Radiology, Finger(S), Two Views Completed 07/07/2018 91833 Application of Cast short arm Completed 01/19/2016 39032560 Colonoscopy Completed Medical Devices Description No Information Available Encounters Type Date Location Provider Dx Diagnosis Office Visit 09/04/2018 Family Medicine Casey Perez MD H66.91 Otitis media, 9:[address]a [address] unspecified, right ear H62.41 Otitis externa in oth diseases classd elswhr, right ear L40.0 Psoriasis vulgaris Office Visit 07/18/2018 Orthopaedic Winter Victor, S60.011D Contusion of 1:00p Office PA right thumb without damage to nail, subs encntr Office Visit 07/07/2018 Orthopaedic Winter Victor, M25.541 Pain in joints 1:00p Office PA of right hand S60.011A Contusion of right thumb without damage to nail, init encntr W22.8xxA Striking against or struck by other objects, init encntr W19.xxxA Unspecified fall, initial encounter Office Visit 07/03/2018 3:00p Primary Care Rebecca Braga, L95.9 Vasculitis limited Office MD to the skin, unspecified I10 Essential (primary) hypertension N18.3 Chronic kidney disease, stage 3 (moderate) R80.9 Proteinuria, unspecified M06.9 Rheumatoid arthritis, unspecified R31.9 Hematuria, unspecified Office Visit 03/31/2018 2:30p Primary Care Gloria Collier, L40.8 Other psoriasis Office MS, LIFESTYLE CONSULTANT-C, CNM M06.9 Rheumatoid arthritis, unspecified K76.0 Fatty (change of) liver, not elsewhere classified R21 Rash and other nonspecific skin eruption B37.3 Candidiasis of vulva and vagina Assessments Date Code Description Provider 09/04/2018 H66.91 Otitis media, unspecified, right Casey Perez MD ear 09/04/2018 H62.41 Otitis externa in other diseases Casey Perez MD classified elsewhere, right ear 09/04/2018 L40.0 Psoriasis vulgaris Casey Perez MD 08/29/2018 G31.84 Mild cognitive impairment, so Gloria Collier, MS, LIFESTYLE CONSULTANT-C , stated CN 08/29/2018 R80.9 Proteinuria, unspecified GagGloria robledo, MS, LIFESTYLE CONSULTANT-C, CN 08/29/2018 N18.3 Chronic kidney disease, stage 3 Amira, Gloria, MS, LIFESTYLE CONSULTANT- C, (moderate) CN 08/29/2018 M06.9 Rheumatoid arthritis, unspecified GagGloria robledo, MS, LIFESTYLE CONSULTANT-C, CN 08/22/2018 G31.84 Mild cognitive impairment, so Gagen, Gloria, MS, LIFESTYLE CONSULTANT-C , stated CN 08/22/2018 R31.9 Hematuria, unspecified Gagen, Gloria, MS, LIFESTYLE CONSULTANT-C, [facility] 08/22/2018 R80.9 Proteinuria, unspecified Gagen, Gloria, MS, LIFESTYLE CONSULTANT-C, CN 08/22/2018 N18.3 Chronic kidney disease, stage 3 Gagen, Gloria, MS, LIFESTYLE CONSULTANT- C, (moderate) [facility] 08/04/2018 R31.9 Hematuria, unspecified Gagen, Gloria, MS, LIFESTYLE CONSULTANT-C, CN 08/04/2018 R80.9 Proteinuria, unspecified Gagen, Gloria, MS, LIFESTYLE CONSULTANT-C, [facility] 08/04/2018 N18.3 Chronic kidney disease, stage 3 Gagen, Gloria, MS, LIFESTYLE CONSULTANT- C, (moderate) [facility] 07/18/2018 S60.011D Contusion of right thumb without Winter Victor PA damage to nail, subsequent 07/07/2018 M25.541 Pain in joints of right hand Winter Victor PA 07/07/2018 S60.011A Contusion of right thumb without Winter Victor PA damage to nail, initial enc 07/07/2018 W22.8xxA Striking against or struck by other Winter Victor PA objects, init encntr 07/07/2018 W19.xxxA Unspecified fall, initial encounter Winter Victor PA 07/03/2018 L95.9 Vasculitis limited to the skin, Rebecca Braga MD unspecified 07/03/2018 I10 Essential (primary) hypertension Rebecca Braga MD 07/03/2018 N18.3 Chronic kidney disease, stage 3 Rebecca Braga MD (moderate) 07/03/2018 R80.9 Proteinuria, unspecified Rebecca Braga MD 07/03/2018 M06.9 Rheumatoid arthritis, unspecified Rebecca Braga MD 07/03/2018 R31.9 Hematuria, unspecified Rebecca Braga MD 03/31/2018 L40.8 Other psoriasis Gagen, Gloria, MS, LIFESTYLE CONSULTANT-C, CNM 03/31/2018 M06.9 Rheumatoid arthritis, unspecified Gagen, Gloria, MS, LIFESTYLE CONSULTANT-C, CNM 03/31/2018 K76.0 Fatty (change of) liver, not Gloria Collier MS, LIFESTYLE CONSULTANT-C, elsewhere classified CNM 03/31/2018 R21 Rash and other nonspecific skin Gloria Collier MS, LIFESTYLE CONSULTANT-C, eruption CNM 03/31/2018 B37.3 Candidiasis of vulva and vagina Gloria Collier MS, LIFESTYLE CONSULTANT- C, CNM Plan of Treatment 09/04/2018 - Casey Perez MDH66.91 Otitis media, unspecified, right earNew Medication:Doxycycline Hyclate 100 mg - 1 tab by mouth twice a day as atskcwloC22.41 Otitis externa in other diseases classified elsewhere, right earNew Medication:Ciprodex 0.3-0.1 % - 4 drop in right ear twice a day for 7 daysL40.0 Psoriasis vulgaris Functional Status Description No Information Available Mental Status Description No Information Available Referrals Refer to Dr Reason for Referral Status Appt Date Bry Cuenca M.D. memory issues 09/01/18 faxed notes.... LE Scheduled 07/2018 [facility] [address] [place] [address] [phone] Sumit Albright MD proteinuria 09/01/18 faxed notes.... LE Closed 09/11/2018 [address] [place] [address] [phone] Saundra Flores MD Closed [address] [place] [address] [phone]
[2018-10-18 08:22] VITALS: BP 147/70
[2018-10-18] MEDS ORDERED: Neomyc/Polym/HC 1% OTIC SUSP* **OTIC BOTH EARS ONE (08:41)
--- NOTE | 2018-10-18 09:07 | UC ---
Ear Complaint HPI - HPI Summary HPI Summary: 63 yo female with left >> right otalgia x days decreased hearing psoriasis no fever - History of Current Complaint Chief Complaint: UCEar Stated Complaint: BILATERAL EAR PAIN Time Seen by Provider: 10/18/18 08:16 Hx Obtained From: Patient Hx Last Menstrual Period: 1994 Onset/Duration: Gradual Onset Severity Initially: Severe Severity Currently: Severe Pain Intensity: 7 Pain Scale Used: 0-10 Numeric Associated Signs/Symptoms: Positive: Hearing Loss, Swelling @ - Left EAC Related History: Seasonal Allergies - Allergies/Home Medications Allergies/Adverse Reactions: Allergies Allergy/AdvReac Type Severity Reaction Status Date / Time meperidine [From Demerol] Allergy Severe Anaphylatic Verified 10/18/18 08:23 Shock Sulfa (Sulfonamide Allergy Severe Leg pain Verified 10/18/18 08:23 Antibiotics) Penicillins Allergy Intermediate Rash, Verified 10/18/18 08:23 sweating, N/V, diarrhea phenytoin [From Dilantin] Allergy Intermediate ucontrollable Verified 10/18/18 08:23 shaking epinephrine AdvReac Intermediate severe Verified 10/18/18 08:23 uncontrollable shaking Iodinated Contrast Media AdvReac Intermediate kidney Verified 10/18/18 08:23 [Iodinated Contrast- Oral problems and IV Dye] soy AdvReac Intermediate Sinus, Verified 10/18/18 08:23 runny eyes codeine AdvReac hyperactivi Verified 10/18/18 08:23 ty red dye AdvReac problems Verified 10/18/18 08:23 with kidneys, skin problems GLUTEN Allergy PSORIASIS, Uncoded 10/18/18 08:23 DIARRHEA MILK Allergy PSORIASIS Uncoded 10/18/18 08:23 PMH/Surg Hx/FS Hx/Imm Hx Previously Healthy: Yes Cardiovascular History: Hypertension - Surgical History Surgical History: Yes Surgery Procedure, Year, and Place: APPENDECTOMY- AGE 4. HYSTERECTOMY-10/1994- [facility]. GANGLION cyst X 2. COLONOSCOPY - Family History Known Family History: Positive: Cardiac Disease, Hypertension, Non-Contributory Family History: no known cardio-vascular issues in family lineage - Social History Alcohol Use: Rare Alcohol Amount: 4 OZ WINE/DAY Substance Use Type: None Smoking Status (MU): Former Smoker When Did the Patient Quit Smoking/Using Tobacco: 1986 - Immunization History Most Recent Influenza Vaccination: NEVER Most Recent Tetanus Shot: ~2013 Most Recent Pneumonia Vaccination: NEVER Review of Systems All Other Systems Reviewed And Are Negative: Yes Constitutional: Positive: Negative Skin: Positive: Negative Eyes: Positive: Negative ENT: Positive: Ear Ache Respiratory: Positive: Negative Cardiovascular: Positive: Negative Gastrointestinal: Positive: Negative Genitourinary: Positive: Negative Motor: Positive: Negative Neurovascular: Positive: Negative Musculoskeletal: Positive: Negative Neurological: Positive: Negative Psychological: Positive: Negative Physical Exam Triage Information Reviewed: Yes Appearance: Well-Appearing, No Pain Distress, Well-Nourished Vital Signs: Initial Vital Signs Temp 98.6 F 10/18/18 08:15 Pulse 52 10/18/18 08:15 Resp 16 10/18/18 08:15 BP 147/70 10/18/18 08:15 Pulse Ox 98 10/18/18 08:15 Vital Signs Reviewed: Yes Eye Exam: Normal Eyes: Positive: Conjunctiva Clear ENT: Positive: Uvula midline, Other - Left EAC swollen closed. Negative: Hearing grossly normal, Nasal congestion, Nasal drainage, Tonsillar swelling, Tonsillar exudate, Hoarse voice Neck: Positive: Supple, Nontender, No Lymphadenopathy Respiratory: Positive: Lungs clear, Normal breath sounds, No respiratory distress Cardiovascular: Positive: RRR, No Murmur Abdomen Description: Positive: Nontender, No Organomegaly, Soft. Negative: CVA Tenderness (R), CVA Tenderness (L) Bowel Sounds: Positive: Present Musculoskeletal: Positive: ROM Intact, No Edema Neurological: Positive: Alert, Muscle Tone Normal Psychological Exam: Normal Skin Exam: Other Ear Complaint Course/Dx - Course Course Of Treatment: Suggs ear wick inserted left ear by me - Differential Dx/Diagnosis Provider Diagnosis: Bilateral otitis externa, Psoriasis Discharge ED - Sign-Out/Discharge Documenting (check all that apply): Patient Departure All imaging exams completed and their final reports reviewed: No Studies - Discharge Plan Condition: Stable Disposition: HOME Patient Education Materials: Otitis Externa (ED) Referrals: Nori Womack [Medical Doctor] - 2 Weeks (I suggest you see a salvage engineering technician about your psoriasis of the ears) Additional Instructions: recheck in 3-5 days if not better remove ear wick if it has not fallen out after a week - Billing Disposition and Condition Condition: STABLE Disposition: Home
== END 2018-10-18 09:07 | disposition home or self-care (01) ==
LOC: UCCORT 08:03
DX: H60.93 Unspecified otitis externa, bilateral (principal); L40.9 Psoriasis, unspecified; Z88.0 Allergy status to penicillin; Z88.2 Allergy status to sulfonamides; I10 Essential (primary) hypertension; Z87.891 Personal history of nicotine dependence
CPT/HCPCS: 99212; A9270-GY; G0463